=== PATIENT | male | born 1970 | race Two or more races ===

== ENCOUNTER 2024-09-24 17:19 | Inpatient (IN) | payer BC, OTHER ==
[~2024-09-24] VITALS: Ht 185.4 cm; Wt 145.8 kg
--- NOTE | 2024-09-24 17:46 | ED.PDOC ---
History of Present Illness HPI Comments 54-year-old male brought by paramedics from [facility] after cardiac arrest. Patient was sitting at a picnic table when he dropped to the ground. CPR performed by family member. When paramedics arrived he was in ventricular fibrillation for which he was shocked continuous CPR for few minutes along with one epi. Patient came back to sinus rhythm. He was answering questions prior to coming to the ER. Patient vitals signs along with mental state back to baseline as per family. 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 Denies any other medical surgical history. Chief Complaint: CPR Time Seen by MD: 17:32 Primary Care Provider: " I DON'T KNOW THE NAME" Reviewed Notes: Nurses Notes, Medications, Allergies Allergies: Coded Allergies: NO KNOWN ALLERGIES (Unverified , 09/24/24) Information Source: Emergency Med Personnel Mode of Arrival: EMS Severity: Moderate Timing: Minutes Duration: Since onset Past Medical History PAST MEDICAL HISTORY: Denies Surgical History: Denies all surgeries Social History Smoker: Non-Smoker Alcohol: Denies ETOH Use Drugs: Denies Drug Use Constitutional: denies: chills, diaphoresis, fatigue, fever, malaise, sweats, weakness, others EENTM: denies: blurred vision, double vision, ear bleeding, ear discharge, ear drainage, ear pain, ear ringing, eye pain, eye redness, hearing loss, mouth pain, mouth swelling, nasal discharge, nose bleeding, nose congestion, nose pain, photophobia, tearing, throat pain, throat swelling, voice changes, others Respiratory: denies: cough, hemoptysis, orthopnea, SOB at rest, shortness of breath, SOB with excertion, stridor, wheezing, others Cardiovascular: reports: chest pain; denies: dizzy spells, diaphoresis, Dyspnea on exertion, edema, irregular heart beat, left arm pain, lightheadedness, palpitations, PND, syncope, others Gastrointestinal: denies: abdomen distended, abdominal pain, blood streaked bowels, constipated, diarrhea, dysphagia, difficulty swallowing, hematemesis, melena, nausea, poor appetite, poor fluid intake, rectal bleeding, rectal pain, vomiting, others Genitourinary: denies: burning, dysuria, flank pain, frequency, hematuria, incontinence, penile discharge, penile sore, pain, testicle pain, testicle swelling, urgency, others Neurological: denies: dizziness, fainting, headache, left sided numbness, left sided weakness, numbness, paresthesia, pre-existing deficit, right sided numbness, right sided weakness, seizure, speech problems, tingling, tremors, weakness, others Musculoskeletal: denies: back pain, gout, joint pain, joint swelling, muscle pain, muscle stiffness, neck pain, others Integumetry: denies: bruises, change in color, change in hair/nails, dryness, laceration, lesions, lumps, rash, wounds, others Allergic/Immunocompromised: denies: Difficulty Healing, Frequent Infections, Hives, Itching, others Hematologic/Lymphatic: denies: anemia, blood clots, easy bleeding, easy bruising, swollen glands, others Endocrine: denies: excessive hunger, excessive sweating, excessive thirst, excessive urination, flushing, intolerance to cold, intolerance to heat, unexplained weight gain, unexplained weight loss, others Psychiatric: denies: anxiety, bipolar disorder, depression, hopeless, panic disorder, schizophrenia, sleepless, suicidal, others Physical Exam General Appearance: Moderate Distress, Obese HEENT: Normal ENT Inspection, Pharynx Normal, TMs Normal Neck: Full Range of Motion, Non-Tender, Normal, Normal Inspection Respiratory: Chest Non-Tender, Lungs Clear, No Accessory Muscle Use, No Respiratory Distress, Normal Breath Sounds Cardiovascular: No Edema, No JVD, No Murmur, No Gallop, Normal Peripheral Pulses, Regular Rate/Rhythm Breast Exam: Deferred Gastrointestinal: No Organomegaly, Non Tender, No Pulsatile Mass, Normal Bowel Sounds, Soft Genitalia: Deferred Pelvic: Deferred Rectal: Deferred Extremities: Swelling (Bilateral lower extremity) Musculoskeletal : Apperance: Normal Neurologic: Alert Cerebellar Function: NOT DONE Reflexes: NOT DONE Skin: Dry, Normal Color, Warm Peripheral Pulses: 3+ Radial (R), 3+ Radial (L) Lymphatic: No Adenopathy Was a procedure done? Was a procedure done?: No Differential Dx Considerations may include: Cardiac arrest Electrolyte imbalance X-Ray, Labs, Meds, VS Vital Signs Date Time Temp Pulse Resp B/P (MAP) Pulse Ox O2 Delivery O2 Flow Rate FiO2 09/24/24 20:16 77 09/24/24 20:00 77 09/24/24 19:30 Nasal Cannula* 2 28 09/24/24 19:30 79 14 128/78 (95) 99 09/24/24 18:35 78 09/24/24 18:17 83 12 99 Nasal Cannula* 2 28 09/24/24 17:41 80 09/24/24 17:20 97.6 83 12 123/85 (98) 99 97.6 09/24/24 17:19 98.6 86 16 134/72 (92) 98 Lab Test 09/24/24 21:12 09/24/24 18:53 09/24/24 18:05 Range/Units Lactic Acid Level Pending Troponin I High Sensitivity Pending 442 *H 327 *H </=54 ng/L White Blood Count 9.0 4.4-10.8 10^3/uL Red Blood Count 5.33 4.5-5.90 10^6/uL Hemoglobin 15.0 13.5-17.5 g/dL Hematocrit 45.5 41.0-53.0 % Mean Corpuscular Volume 85.3 80.0-100.0 fL Mean Corpuscular Hemoglobin 28.2 28.0-32.0 pg Mean Corpuscular Hemoglobin Concent 33.0 32.0-36.0 g/dL Red Cell Distribution Width 15.2 H 11.8-14.3 % Platelet Count 181 140-450 10^3/uL Mean Platelet Volume 8.8 6.9-10.8 fL Neutrophils (%) (Auto) 77.2 37.0-80.0 % Lymphocytes (%) (Auto) 16.4 10.0-50.0 % Monocytes (%) (Auto) 5.8 0.0-12.0 % Eosinophils (%) (Auto) 0.3 0.0-7.0 % Basophils (%) (Auto) 0.3 0.0-2.0 % Neutrophils # (Auto) 7.0 1.6-8.6 10 ^3/uL Lymphocytes # (Auto) 1.5 0.4-5.4 10 ^3/uL Monocytes # (Auto) 0.5 0-1.3 10 ^3/uL Eosinophils # (Auto) 0 0-0.8 10 ^3/uL Basophils # (Auto) 0 0-0.2 10 ^3/uL Nucleated Red Blood Cells 0.2 % Sodium Level 143 136-145 mmol/L Potassium Level 3.5 3.5-5.1 mmol/L Chloride Level 107 98-107 mmol/L Carbon Dioxide Level 24 20-31 mmol/L Anion Gap 12 5-15 Blood Urea Nitrogen 22 9-23 mg/dL Creatinine 1.20 0.700-1.30 mg/dL Glomerular Filtration Rate Calc 71 >90 mL/min BUN/Creatinine Ratio 18.3 10.0-20.0 Serum Glucose 153 H 74-106 mg/dL Hemoglobin A1c 5.7 <5.7 % A1C Calcium Level 9.0 8.7-10.4 mg/dL B-Type Natriuretic Peptide 42.46 0-100 pg/mL Current Medications Medications (Trade) Dose Ordered Sig/Lindsay Route Start Time Stop Time Status Last Admin Enoxaparin Sodium (Lovenox) 130 mg ONCE ONCE SC 09/24/24 19:00 09/24/24 19:01 DC 09/24/24 19:43 Patient alert. Had cardiac arrest prior to coming here. Rosc. Vitals stable. Answering questions. Cardiac marker elevated. CPR was performed prior to coming to the ER. He was in VFib. Shocked. Sinus rhythm on arrival. Was given Lovenox. Blood sugar slightly elevated. Denies any past medical history. Unknown why he passed out. DVT study within normal limits. CT of the chest. Patient denies chest pain. He is doing much better. Has been stable. EKG reviewed does not show any acute changes. Cardiology consultation. Explained to the family. Continue cardiac monitoring. Time of 1ST Reevaluation: 21:31 Reevaluation 1ST: Unchanged Patient Education/Counseling: Diagnosis, Treatment, Prognosis Family Education/Counseling: Need For Follow Up Departure 1 Departure Time of Disposition: 21:34 Impression: Primary Impression: Cardiac arrest Additional Impression: NSTEMI (non-ST elevated myocardial infarction) Disposition: ADMITTED INPATIENT Admit to: Med Surg Condition: Guarded Critical Care Note Critical Care Time?: Yes (45 min-critical care time only) Stability Stability form required: No Heart Score Heart Score: Heart Score Response (Comments) Value History Slightly Suspicious 0 EKG Normal 0 Age 45-64 1 Risk Factors 1 or 2 risk factors 1 Troponin >3 x's Normal limit 2 Total 4 AMERICO ECHAVARRIA MD Sep 24, 2024 17:46
[2024-09-24 18:17] VITALS: PULSE 83; RESP 12; O2SAT 99
[2024-09-24 18:26] LABS: Basophils # (auto) 0 10 ^3/uL (0-0.2); Basophils % (auto) 0.3 % (0.0-2.0); Eosinophils # (auto) 0 10 ^3/uL (0-0.8); Eosinophils % (auto) 0.3 % (0.0-7.0); Hematocrit 45.5 % (41.0-53.0); Lymphocytes # (auto) 1.5 10 ^3/uL (0.4-5.4); Lymphocytes % (auto) 16.4 % (10.0-50.0); Mean Corpuscular Hemoglobin 28.2 pg (28.0-32.0); Mean Corpuscular Volume 85.3 fL (80.0-100.0); Monocytes # (auto) 0.5 10 ^3/uL (0-1.3); Monocytes % (auto) 5.8 % (0.0-12.0); Neutrophils % (auto) 77.2 % (37.0-80.0); Nucleated Red Blood Cells % 0.2 %; Platelet Count (auto) 181 10^3/uL (140-450); Red Blood Cells 5.33 10^6/uL (4.5-5.90); Red Cell Distribution Width 15.2 % (11.8-14.3)
[2024-09-24 18:33] LABS: Chloride 107 mmol/L (98-107); Potassium 3.5 mmol/L (3.5-5.1); Sodium 143 mmol/L (136-145)
[2024-09-24 18:34] LABS: Anion Gap 12 (5-15); Carbon Dioxide 24 mmol/L (20-31)
--- NOTE | 2024-09-24 18:38 | DVH ---
Bilateral lower extremity venous duplex Clinical History: dvt Comparison: None Technique: Duplex Doppler evaluation of the deep venous systems of both lower extremities from the common femora l veins to the popliteal veins including color Doppler and spectral/pulsed waveform analysis was perf ormed. Findings: RIGHT SIDE: The common femoral vein demonstrates appropriate compressibility and waveform variability. There is compressibility/patency of the great saphenous vein at the proximal thigh. The femoral vein demonstrates appropriate compressibility and waveform variability. The deep femoral vein demonstrates appropriate compressibility and waveform variability. The popliteal vein demonstrates appropriate compressibility and waveform variability. There is normal compressibility at the tibioperoneal trunk. LEFT SIDE: The common femoral vein demonstrates appropriate compressibility and waveform variability. There is compressibility/patency of the great saphenous vein at the proximal thigh. The femoral vein demonstrates appropriate compressibility and waveform variability. The deep femoral vein demonstrates appropriate compressibility and waveform variability. The popliteal vein demonstrates appropriate compressibility and waveform variability. There is normal compressibility at the tibioperoneal trunk. Impression: 1. No right or left femoropopliteal venous thrombosis.
[2024-09-24 18:39] LABS: BUN/Creatinine Ratio 18.3 (10.0-20.0); Blood Urea Nitrogen 22 mg/dL (9-23); Glucose 153 mg/dL (74-106)
--- NOTE | 2024-09-24 18:54 | ECG ---
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
--- NOTE | 2024-09-24 18:55 | ECG ---
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
[2024-09-24] MEDS: ENOXAPARIN SOD 150 MG/1 ML SYRINGE SC ONE (19:43)
[2024-09-24] MEDS: IOHEXOL 350 MG/ML 100ML IJ ONE (20:59)
[2024-09-24] MEDS ORDERED: DOCUSATE SOD 100 MG CAP PO PRN (21:00)
[2024-09-24] MEDS ORDERED: ONDANSETRON HCL 4 MG/2 ML VIAL IV PRN (21:00)
--- NOTE | 2024-09-24 21:23 | DVH ---
EXAM: CT HEAD WITHOUT CONTRAST INDICATION: altered TECHNIQUE: CT of the head without intravenous contrast. Radiation Dose Information: CT Dose: CTDI volume is 68.27 mGy. Dose-length product is 1344.95 mGy*cm The dose indicators for CT are the volume Computed Tomography (CT) Dose Index (CTDIvol) and the Dose Length Product (DLP), and are measured in units of mGy and mGy-cm, respectively. These indicators are not patient dose, but values generated from the CT scanner acquisition factors. The report includes radiation exposure data for exposures received during this examination. COMPARISON: None FINDINGS: There is no evidence of acute intracranial hemorrhage, extra-axial collection, mass effect, midline s hift, herniation or hydrocephalus. The ventricles, sulci and cisterns are age appropriate. The champagne-white differentiation is intact. Patchy periventricular and subcortical white matter hypoattenuation is nonspecific but may be related to small vessel ischemic disease. The visualized paranasal sinuses and mastoid air cells are clear. The surrounding soft tissues and osseous structures are unremarkable. IMPRESSION: * No acute intracranial hemorrhage. * No CT findings to suggest territorial ischemia.
[2024-09-24] MEDS: ENOXAPARIN SOD 150 MG/1 ML SYRINGE SC SCH (22:00)
[2024-09-24] MEDS: SODIUM CHLOR 0.9% PF (SALINE LOCK) 10ML VIAL/SYR IV SCH (22:02)
--- NOTE | 2024-09-24 22:02 | DVH ---
Exam: CT CT CHEST/AB/PL W CON- IV ONLY History: PE Comparison Study: None available at time of dictation. TECHNIQUE: Multidetector CT of the abdomen was performed from lung bases to pubic symphysis. Imaging was performed without IV contrast. Axial, coronal and sagittal multiplanar reformats were obtained fr om the axial data set by the technologist. Radiation Dose Information: CT Dose: CTDI volume is 71.46 mGy. Dose-length product is 3602.97 mGy*cm Omnipaque 350: 100 mL FINDINGS: Suboptimal opacification of pulmonary artery to exclude pulmonary emboli. ( opacification required 26 6 HU ; opacification obtained 155 HU ) Lung Bases: No filling defects in the main or right or left primary pulmonary arteries. Pulmonary art anuel is not enlarged to suggest pulmonary artery hypertension. There are no findings to suggest right heart stress. Liver: The liver is normal in size. No focal lesions. Gallbladder and Biliary Tree: Unremarkable Spleen: Unremarkable Pancreas: The pancreas is grossly normal in appearance. Adrenal Glands: Unremarkable Kidneys: Kidneys are grossly normal without calculi or hydronephrosis. Bladder: Grossly unremarkable for degree of distention. Bowel: The stomach is grossly normal in appearance. Small bowel and colon are normal in caliber and d istribution. The appendix is not visualized; however, no secondary findings of acute appendicitis id entified. Ascites: Absent Lymphadenopathy: No mesenteric, retroperitoneal or periportal lymphadenopathy. Abdominal Wall and Mesentery: Unremarkable. Vasculature: The visualized abdominal aorta is normal in size and caliber. Evaluation of abdominal a nd pelvic vessels is limited due to lack of intravenous contrast. Pelvic Organs: Unremarkable Musculoskeletal: No aggressive focal bony lesions, acute fractures or dislocation. Soft tissues: Unremarkable IMPRESSION: 1. Suboptimal opacification of the pulmonary artery for the diagnosis of pulmonary embolus. There are however no filling defects seen in the main pulmonary artery or main right or left pulmonary arterie s. There is no saddle embolus present. 2. No findings of bowel obstruction. 3. No calcified gallstones. Radiation optimization: All CT scans at this facility use at least one of these dose optimization jason hniques: automated exposure control mA and/or kV adjustment per patient size (includes targeted exam s where dose is matched to clinical indication) or iterative reconstruction.
--- NOTE | 2024-09-24 23:21 | DVHHP2 ---
History of Present Illness Reason for Visit: NSTEMI (non-ST elevated myocardial infarction) History of Present Illness The patient is a 54-year-old male morbidly obese with past medical history of Dnrrp-Wzsazrhbi-Kmqrl syndrome presented to [facility] ED for evaluation of cardiac arrest at home. Patient was sitting at a picnic table when he dropped to the ground. CPR performed by family member until paramedics arrived. When paramedics arrived on the scene, he was in ventricular fibrillation for which he was shocked and continuous CPR for few minutes along with one epi. Patient came back to sinus rhythm and was answering questions prior to coming to the ED. patient was seen and evaluated in the ED, laboratory data shows WBC 9.0, platelets 181, sodium 143, potassium 3.5, BUN 22, creatinine 1.20, glucose 153, troponin 442, BNP 42.45, blood pressure 128/78, heart rate 77, temperature 97.6 F, O2 saturation 99% on oxygen. CT of the head/abdomen/pel vis revealing suboptimal opacification of the pulmonary artery for the diagnosis of pulmonary embolus; the however no filling defect seen in the main pulmonary artery and main right or left pulmonary arteries; there is no saddled embolus present. Please see medication orders section in the computer. On my assessment, at bedside, patient denied chest pain, no headache, no dizziness, no diaphoresis, no palpitations, currently on oxygen, no nausea, no vomiting, no fever, no chills. Patient was admitted for further evaluation and medical management. Past Medical History Xfguy-Dohfvxkse-Znpdi syndrome Past Surgical History Denies all surgeries Family History Reviewed, noncontributory to the management of this case. Past Social History The patient lives at home, denies smoking, alcohol or illicit drugs abuse. Review of Systems Constitutional: Yes: Weakness; No: Fever, Chills, Sweats, Malaise, Other Eyes: No: Pain, Vision change, Conjunctivae inflammation, Eyelid inflammation, Other, Redness ENT: No: Ear pain, Ear discharge, Nose pain, Nose discharge, Nose congestion, Mouth pain, Mouth swelling, Throat pain, Throat swelling, Other Respiratory: Shortness of breath; No: Cough, Dry, SOB with excertion, Wheezing, Hemoptysis, Pleuritic Pain, Sputum, Wheezing, Other Cardiovascular: Chest Pain; No: Palpitations, Orthopnea, Paroxysmal Noc. Dyspnea, Edema, Lt Headedness, Other Gastrointestinal: No: Nausea, Vomiting, Abdominal Pain, Diarrhea, Constipation, Melena, Hematochezia, Other Genitourinary: No Dysuria, No Frequency, No Incontinence, No Hematuria, No Retention, No Other Musculoskeletal: No: other, neck pain, shoulder pain, arm pain, back pain, hand pain, leg pain, foot pain Skin: No: Rash, Lesions, Jaundice, Bruising, Other Neurological: No: Weakness, Numbness, Incoordination, Change in speech, Confusion, Seizures, Other Allergies: Coded Allergies: NO KNOWN ALLERGIES (Unverified , 09/24/24) Medications Current Medications Medications Dose Ordered Sig/Lindsay Route Start Time Stop Time Status Last Admin Dose Admin Enoxaparin Sodium 130 mg Q12HR SC 09/24/24 22:00 Sodium Chloride 10 ml Q8HR IV 09/24/24 22:00 09/24/24 22:02 10 ML Ondansetron HCl 4 mg Q4HP PRN IV 09/24/24 21:00 Acetaminophen/ Hydrocodone Bitart 1 tab Q4HP PRN PO 09/24/24 21:00 Docusate Sodium 100 mg BIDPRN PRN PO 09/24/24 21:00 Acetaminophen 650 mg Q6HP PRN PO 09/24/24 21:00 Exam Vital Signs Vital Signs Date Time Temp Pulse Resp B/P (MAP) Pulse Ox O2 Delivery O2 Flow Rate FiO2 09/24/24 21:30 84 23 147/90 (109) 97 09/24/24 19:30 Nasal Cannula* 2 28 09/24/24 17:20 97.6 97.6 General Appearance: Alert, Oriented X3, Cooperative, No acute distress HEENT: Atraumatic, PERRLA, EOMI, Mucous membr. moist/pink Respiratory: Clear to auscultation, Normal air movement Cardiovascular: Regular rate, Normal S1, Normal S2, No murmurs Abdominal: Normal bowel sounds, Soft, No tenderness, No hepatospenomegaly, No masses Extremities: No clubbing, No cyanosis, No edema, Normal pulses, No tenderness/swelling Skin: No rashes, No breakdown, No significant lesion Neuro: Normal speech, Normal tone, Sensation intact, Cranial nerves 3-12 NL, Reflexes 2+, Other (Generalized weakness) Psych/Mental Status: Mental status NL, Mood NL Labs/Xrays Labs Test 09/24/24 21:12 09/24/24 18:05 Range/Units D-Dimer, Quantitative 7.25 H 0.0-0.49 mg/L FEU Lactic Acid Level 1.5 0.4-2.0 mmol/L Troponin I High Sensitivity 646 *H </=54 ng/L White Blood Count 9.0 4.4-10.8 10^3/uL Red Blood Count 5.33 4.5-5.90 10^6/uL Hemoglobin 15.0 13.5-17.5 g/dL Hematocrit 45.5 41.0-53.0 % Mean Corpuscular Volume 85.3 80.0-100.0 fL Mean Corpuscular Hemoglobin 28.2 28.0-32.0 pg Mean Corpuscular Hemoglobin Concent 33.0 32.0-36.0 g/dL Red Cell Distribution Width 15.2 H 11.8-14.3 % Platelet Count 181 140-450 10^3/uL Mean Platelet Volume 8.8 6.9-10.8 fL Neutrophils (%) (Auto) 77.2 37.0-80.0 % Lymphocytes (%) (Auto) 16.4 10.0-50.0 % Monocytes (%) (Auto) 5.8 0.0-12.0 % Eosinophils (%) (Auto) 0.3 0.0-7.0 % Basophils (%) (Auto) 0.3 0.0-2.0 % Neutrophils # (Auto) 7.0 1.6-8.6 10 ^3/uL Lymphocytes # (Auto) 1.5 0.4-5.4 10 ^3/uL Monocytes # (Auto) 0.5 0-1.3 10 ^3/uL Eosinophils # (Auto) 0 0-0.8 10 ^3/uL Basophils # (Auto) 0 0-0.2 10 ^3/uL Nucleated Red Blood Cells 0.2 % Sodium Level 143 136-145 mmol/L Potassium Level 3.5 3.5-5.1 mmol/L Chloride Level 107 98-107 mmol/L Carbon Dioxide Level 24 20-31 mmol/L Anion Gap 12 5-15 Blood Urea Nitrogen 22 9-23 mg/dL Creatinine 1.20 0.700-1.30 mg/dL Glomerular Filtration Rate Calc 71 >90 mL/min BUN/Creatinine Ratio 18.3 10.0-20.0 Serum Glucose 153 H 74-106 mg/dL Hemoglobin A1c 5.7 <5.7 % A1C Calcium Level 9.0 8.7-10.4 mg/dL B-Type Natriuretic Peptide 42.46 0-100 pg/mL PATIENT: REJI GIBSONACCT: [id number] UNIT: [id number] : 1970 LOC: ER ROOM / BED: / AGE / SEX: 54 / M ADM STATUS: REG ER SERVICE 40 ORDERING PHYSICIAN: AMERICO ECHAVARRIA MD PROCEDURE(s): CAPIV - CT CHEST/AB/PL W CON- IV ONLY REASON: pe ORDER NUMBER(s): [id number], ACCESSION NUMBER(s): [id number] Exam: CT CT CHEST/AB/PL W CON- IV ONLY History: PE Comparison Study: None available at time of dictation. TECHNIQUE: Multidetector CT of the abdomen was performed from lung bases to pubic symphysis. Imaging was performed without IV contrast. Axial, coronal and sagittal multiplanar reformats were obtained from the axial data set by the technologist. Radiation Dose Information: CT Dose: CTDI volume is 71.46 mGy. Dose-length product is 3602.97 mGy*cm Omnipaque 350: 100 mL FINDINGS: Suboptimal opacification of pulmonary artery to exclude pulmonary emboli. (opacification required 266 HU ; opacification obtained 155 HU ) Lung Bases: No filling defects in the main or right or left primary pulmonary arteries. Pulmonary artery is not enlarged to suggest pulmonary artery hypertension. There are no findings to suggest right heart stress. Liver: The liver is normal in size. No focal lesions. Gallbladder and Biliary Tree: Unremarkable Spleen: Unremarkable Pancreas: The pancreas is grossly normal in appearance. Adrenal Glands: Unremarkable Kidneys: Kidneys are grossly normal without calculi or hydronephrosis. Bladder: Grossly unremarkable for degree of distention. Bowel: The stomach is grossly normal in appearance. Small bowel and colon are normal in caliber and distribution. The appendix is not visualized; however, no secondary findings of acute appendicitis identified. Ascites: Absent Lymphadenopathy: No mesenteric, retroperitoneal or periportal lymphadenopathy. Abdominal Wall and Mesentery: Unremarkable. Vasculature: The visualized abdominal aorta is normal in size and caliber. Evaluation of abdominal and pelvic vessels is limited due to lack of intravenous contrast. Pelvic Organs: Unremarkable Musculoskeletal: No aggressive focal bony lesions, acute fractures or dislocation. Soft tissues: Unremarkable IMPRESSION: 1. Suboptimal opacification of the pulmonary artery for the diagnosis of pulmonary embolus. There are however no filling defects seen in the main pulmonary artery or main right or left pulmonary arteries. There is no saddle embolus present. 2. No findings of bowel obstruction. 3. No calcified gallstones. ORDERING PHYSICIAN: AMERICO ECHAVARRIA MD PROCEDURE(s): HWOCT - HEAD WITHOUT CONTRAST REASON: altered ORDER NUMBER(s): [id number], ACCESSION NUMBER(s): [id number] EXAM: CT HEAD WITHOUT CONTRAST INDICATION: altered TECHNIQUE: CT of the head without intravenous contrast. Radiation Dose Information: CT Dose: CTDI volume is 68.27 mGy. Dose-length product is 1344.95 mGy*cm The dose indicators for CT are the volume Computed Tomography (CT) Dose Index (CTDIvol) and the Dose Length Product (DLP), and are measured in units of mGy and mGy-cm, respectively. These indicators are not patient dose, but values generated from the CT scanner acquisition factors. The report includes radiation exposure data for exposures received during this examination. COMPARISON: None FINDINGS: There is no evidence of acute intracranial hemorrhage, extra-axial collection, mass effect, midline shift, herniation or hydrocephalus. The ventricles, sulci and cisterns are age appropriate. The champagne-white differentiation is intact. Patchy periventricular and subcortical white matter hypoattenuation is nonspecific but may be related to small vessel ischemic disease. The visualized paranasal sinuses and mastoid air cells are clear. The surrounding soft tissues and osseous structures are unremarkable. IMPRESSION: * No acute intracranial hemorrhage. * No CT findings to suggest territorial ischemia. ORDERING PHYSICIAN: AMERICO ECHAVARRIA MD PROCEDURE(s): BLDVT - BiLat Lower DVT REASON: dvt ORDER NUMBER(s): [id number], ACCESSION NUMBER(s): [id number] Bilateral lower extremity venous duplex Clinical History: dvt Comparison: None Technique: Duplex Doppler evaluation of the deep venous systems of both lower extremities from the common femoral veins to the popliteal veins including color Doppler and spectral/pulsed waveform analysis was performed. Findings: RIGHT SIDE: The common femoral vein demonstrates appropriate compressibility and waveform variability. There is compressibility/patency of the great saphenous vein at the proximal thigh. The femoral vein demonstrates appropriate compressibility and waveform variability. The deep femoral vein demonstrates appropriate compressibility and waveform variability. The popliteal vein demonstrates appropriate compressibility and waveform variability. There is normal compressibility at the tibioperoneal trunk. LEFT SIDE: The common femoral vein demonstrates appropriate compressibility and waveform variability. There is compressibility/patency of the great saphenous vein at the proximal thigh. The femoral vein demonstrates appropriate compressibility and waveform variability. The deep femoral vein demonstrates appropriate compressibility and waveform variability. The popliteal vein demonstrates appropriate compressibility and waveform variability. There is normal compressibility at the tibioperoneal trunk. Impression: 1. No right or left femoropopliteal venous thrombosis. Assessment/Plan Assessment/Plan Cardiac arrest Generalized weakness Hyperglycemia NSTEMI (non-ST elevated myocardial infarction) Plan 1. Admit to telemetry unit 2. Breathing treatment 3. Pain control management 4. Management of fluids and electrolytes 5. Consultation for Cardiology 6. Diagnostic tests chest/abdomen/pelvis CT 7. DVT prophylaxis-on Lovenox 8. Repeat labs CBC, CMP in a.m. 9. Continue with current medical management 10. Treatment plan discussed with patient and RN. Patient verbalized understanding. Plan discussed with: Patient, Other (RN) My Orders Orders - DEBORAH CABRAL DNP Procedure Category Date Status Time Enoxaparin Sodium PHA 09/24/24 In Process (Lovenox) 22:00 * Cardiology Consult CONS 09/24/24 Transmitted 20:48 Allergies DAVIN 09/24/24 In Process 20:48 Code Status CODE 09/24/24 Transmitted 20:48 Sodium Chloride Lock PHA 09/24/24 In Process (Saline Lock Ns) 22:00 Oxygen Per Hour RT 09/24/24 Transmitted 20:48 Ondansetron Hcl PHA 09/24/24 In Process (Zofran) 21:00 Fall Risk Precautions DAVIN 09/24/[address] 20:48 Complete Blood Count LAB 09/25/24 Verified 04:00 Comprehensive LAB 09/25/24 Verified Metabolic Panel 04:00 Echo 2d Mode Cardiac US 09/24/24 Logged DOP 20:48 Condition: Serious DAVIN 09/24/24 In Process 20:48 Troponin-I Hs LAB 09/25/24 Verified 00:00 Troponin-I Hs LAB 09/25/24 Verified 06:00 Troponin-I Hs LAB 09/25/24 Verified 12:00 Hydrocodone-Acet PHA 09/24/24 In Process 5/325mg Tab ([place] 21:00 Docusate Sodium PHA 09/24/24 In Process Capsule (Colace 21:00 Cardiac DIET 09/25/24 Transmitted Diet-2gna,Lofat,Lochol Breakfast Acetaminophen Tablet PHA 09/24/24 In Process (Tylenol Tablet) 21:00 Problem List: (1) Cardiac arrest (2) Hyperglycemia (3) Generalized weakness (4) NSTEMI (non-ST elevated myocardial infarction) Date of Service: Sep 24, 2024 Billing Provider: DEBORAH CABRAL DNP Common Visit Codes: [id number] INP/OBS CARE (HIGH) DEBORAH CABRAL DNP Sep 24, 2024 23:21
[2024-09-24] MEDS ORDERED: NITROGLYCERIN 0.4 MG SL TAB SL PRN (23:30)
[2024-09-24] MEDS ORDERED: MORPHINE SULFATE INJ 2 MG/ml SYRG IV PRN (23:30)
[2024-09-25 03:58] LABS: Basophils # (auto) 0 10 ^3/uL (0-0.2); Basophils % (auto) 0.1 % (0.0-2.0); Eosinophils # (auto) 0 10 ^3/uL (0-0.8); Eosinophils % (auto) 0.1 % (0.0-7.0); Hematocrit 41.1 % (41.0-53.0); Hemoglobin 13.6 g/dL (13.5-17.5); Lymphocytes # (auto) 1.5 10 ^3/uL (0.4-5.4); Lymphocytes % (auto) 17.7 % (10.0-50.0); Mean Corpuscular Hemoglobin 28.1 pg (28.0-32.0); Monocytes # (auto) 0.6 10 ^3/uL (0-1.3); Neutrophils # (auto) 6.5 10 ^3/uL (1.6-8.6); Neutrophils % (auto) 75.1 % (37.0-80.0); Platelet Count (auto) 192 10^3/uL (140-450); Red Blood Cells 4.84 10^6/uL (4.5-5.90); Red Cell Distribution Width 15.1 % (11.8-14.3); White Blood Cell 8.7 10^3/uL (4.4-10.8)
[2024-09-25 04:20] LABS: Alanine Aminotransferase 302 U/L (7-40); Alkaline Phosphatase 67 U/L (46-116); Anion Gap 8 (5-15); Aspartate Aminotransferase 206 U/L (13-40); BUN/Creatinine Ratio 15.2 (10.0-20.0); Bilirubin, Total 0.5 mg/dL (0.2-1.0); Blood Urea Nitrogen 15 mg/dL (9-23); Calcium 8.3 mg/dL (8.7-10.4); Carbon Dioxide 23 mmol/L (20-31); Chloride 109 mmol/L (98-107); Glucose 153 mg/dL (74-106); Potassium 3.4 mmol/L (3.5-5.1); Sodium 140 mmol/L (136-145)
[2024-09-25] MEDS: ACETAMINOPHEN 325 MG TAB PO PRN (07:23)
[2024-09-25 08:30] VITALS: PULSE 74; RESP 13; O2SAT 98
--- NOTE | 2024-09-25 09:11 | DVHINCON2 ---
Date Seen: Sep 25, 2024 Referring Physician Aleena Reason for Consultation Post Cardiac Arrest History of Present Illness 54-year-old male with PMH for Rbvjm-Uppbuvvfi-Keobj syndrome, presents to the hospital s/p cardiac arrest. Patient and are from [place] and was visiting up at [place] for patient states he had 1 beer and had gotten up to go use the restroom when patient suddenly became unresponsive and was helped by local firefighters noting patient was agonal breathing and therefore CPR was initiated. Patient underwent 2 rounds of CPR with 1 shock delivered for ventricular fibrillation, possible 1 round of epi per . Rosc was achieved and patient was becoming more responsive and answering questions. Patient was planned to be transported via air to [facility] or [place] though due to weather was unable to fly therefore patient was then transported here to ER. Of note patient has been walking daily with and had just done a hike earlier that day, apple watch results noted heart rate reached roughly 130 beats per minute during exertion with rest of day showing mean heart rate between 60-70 beats per minute on mobile device heart rate monitoring system. Patient denies any remembered palpitations, lightheadedness, chest pains prior to passing out. Upon evaluation patient vital signs were stable, patient is breathing stable on 2 L NC. Patient does complain of chest pain, anterior thoracic area, s/p compressions, increases with deep breathing. Patient also noted have elevated troponin trending 327, 442, 646, 688, 489. LFTs elevated with AST 206 and ALT 302. EKG reviewed and shows sinus rhythm at 78 beats per minute, no significant ST abnormality noted, no delta wave noted. QTC prolongation at 511 ms. Past Medical History Khhiq-Zweexkrid-Zcbop syndrome Past Surgical History Denies previous cardiac surgery Family History Father and uncle at early age due to cardiac disease with cardiomyopathy and MS roughly around age 53 Social History Denies tobacco, or illicit drug use. Occasional alcohol consumption socially. 1-2 drinks Allergies: Coded Allergies: NO KNOWN ALLERGIES (Unverified , 09/24/24) Home Meds Reported Medications Aspirin (Aspir-81) 81 Mg Tab, 1 TAB PO DAILY, #30 TAB 5 Refills 09/25/24 Current Medications Current Medications Medications (Trade) Dose Ordered Sig/Lindsay Route PRN Reason Start Time Stop Time Status Last Admin Enoxaparin Sodium (Lovenox) 130 mg Q12HR SC 09/24/24 22:00 Sodium Chloride (Saline Lock Ns) 10 ml Q8HR IV 09/24/24 22:00 09/25/24 06:00 Ondansetron HCl (Zofran) 4 mg Q4HP PRN IV NAUSEA / VOMITING 09/24/24 21:00 Acetaminophen/ Hydrocodone Bitart ([place] 5/325MG Tab) 1 tab Q4HP PRN PO MODERATE PAIN (4-6 PAIN SCALE) 09/24/24 21:00 Docusate Sodium (Colace Capsule) 100 mg BIDPRN PRN PO FOR CONSTIPATION 09/24/24 21:00 Acetaminophen (Tylenol Tablet) 650 mg Q6HP PRN PO PAIN SCALE 1-3 OR TEMP>100.4 09/24/24 21:00 09/25/24 07:23 Nitroglycerin (Ntrostat Sublingual) 0.4 mg Q5MINP PRN SL FOR CHEST PAIN 09/24/24 23:30 Morphine Sulfate 2 mg Q30M PRN IV FOR CHEST PAIN 09/24/24 23:30 Review of Systems Constitutional: No: Fever, Chills, Sweats, Weakness, Malaise, Other Eyes: No: Pain, Vision change, Conjunctivae inflammation, Eyelid inflammation, Other, Redness ENT: No: Ear pain, Ear discharge, Nose pain, Nose discharge, Nose congestion, Mouth pain, Mouth swelling, Throat pain, Throat swelling, Other Respiratory: No: Cough, Dry, Shortness of breath, SOB with exertion, Wheezing, Hemoptysis, Pleuritic Pain, Sputum, Wheezing, Other Cardiovascular: ; No: Palpitations, Orthopnea, Paroxysmal Noc. Dyspnea, Edema, Lt Headedness, Other positive: Chest Pain Gastrointestinal: No: Nausea, Vomiting, Abdominal Pain, Diarrhea, Constipation, Melena, Hematochezia, Other Genitourinary: No Dysuria, No Frequency, No Incontinence, No Hematuria, No Rete ntion, No Other Musculoskeletal: neck pain; No: other, shoulder pain, arm pain, back pain, hand pain, leg pain, foot pain Skin: No: Rash, Lesions, Jaundice, Bruising, Other Neurological: Other (Dizziness, headache.); No: Weakness, Numbness, Incoordination, Change in speech, Confusion, Seizures positive: Repetitiveness forgetful Vital Signs Vital Signs Date Time Temp Pulse Resp B/P (MAP) Pulse Ox O2 Delivery O2 Flow Rate FiO2 09/25/24 08:30 74 13 98 Nasal Cannula* 2 28 09/25/24 07:35 139/87 (104) 09/24/24 17:20 97.6 97.6 Physical Exam General appearance: Patient is well-developed, well-nourished, in no acute distress. HEENT: Exam shows: Normocephalic, atraumatic, PERRLA, EOMI Neck: Supple, no bruits Chest: Equal chest excursion bilaterally. Breath sounds normal-no rales or wheezes. Heart: Rhythm: Regular rate; no murmur or gallop Abdomen: Exam shows: Soft, nontender, nondistended Musculoskeletal: No clubbing, no cyanosis, trace bilateral lower extremity edema Dermatology: Skin warm, moist. Neurological: Exam shows: Alert and oriented x4, normal speech Available prior records, labs, EKG, rhythm strips reviewed and interpreted Labs/Diagnostic Data Labs Test 09/25/24 03:30 09/24/24 21:12 09/24/24 18:05 Range/Units White Blood Count 8.7 4.4-10.8 10^3/uL Red Blood Count 4.84 4.5-5.90 10^6/uL Hemoglobin 13.6 13.5-17.5 g/dL Hematocrit 41.1 41.0-53.0 % Mean Corpuscular Volume 85.0 80.0-100.0 fL Mean Corpuscular Hemoglobin 28.1 28.0-32.0 pg Mean Corpuscular Hemoglobin Concent 33.0 32.0-36.0 g/dL Red Cell Distribution Width 15.1 H 11.8-14.3 % Platelet Count 192 140-450 10^3/uL Mean Platelet Volume 8.7 6.9-10.8 fL Neutrophils (%) (Auto) 75.1 37.0-80.0 % Lymphocytes (%) (Auto) 17.7 10.0-50.0 % Monocytes (%) (Auto) 7.0 0.0-12.0 % Eosinophils (%) (Auto) 0.1 0.0-7.0 % Basophils (%) (Auto) 0.1 0.0-2.0 % Neutrophils # (Auto) 6.5 1.6-8.6 10 ^3/uL Lymphocytes # (Auto) 1.5 0.4-5.4 10 ^3/uL Monocytes # (Auto) 0.6 0-1.3 10 ^3/uL Eosinophils # (Auto) 0 0-0.8 10 ^3/uL Basophils # (Auto) 0 0-0.2 10 ^3/uL Nucleated Red Blood Cells 0.0 % Sodium Level 140 136-145 mmol/L Potassium Level 3.4 L 3.5-5.1 mmol/L Chloride Level 109 H 98-107 mmol/L Carbon Dioxide Level 23 20-31 mmol/L Anion Gap 8 5-15 Blood Urea Nitrogen 15 9-23 mg/dL Creatinine 0.99 0.700-1.30 mg/dL Glomerular Filtration Rate Calc 89 >90 mL/min BUN/Creatinine Ratio 15.2 10.0-20.0 Serum Glucose 153 H 74-106 mg/dL Calcium Level 8.3 L 8.7-10.4 mg/dL Total Bilirubin 0.5 0.2-1.0 mg/dL Aspartate Amino Transferase (AST) 206 H 13-40 U/L Alanine Aminotransferase (ALT) 302 H 7-40 U/L Alkaline Phosphatase 67 46-116 U/L Troponin I High Sensitivity 489 *H </=54 ng/L Total Protein 6.0 5.7-8.2 g/dL Albumin 4.0 3.2-4.8 g/dL D-Dimer, Quantitative 7.25 H 0.0-0.49 mg/L FEU Lactic Acid Level 1.5 0.4-2.0 mmol/L Hemoglobin A1c 5.7 <5.7 % A1C B-Type Natriuretic Peptide 42.46 0-100 pg/mL Assessment (Dr. Luna) * S/p VFib cardiac arrest - status post 2 rounds of CPR with 1 epi and 1 shock with ROSC. Continue telemetry monitoring. Follow up echo shows mildly reduced LVEF 45-50% in a global fashion. Grade 1 LV DD. No valvular structural abnormalities. * NSTEMI - troponins stable. Chest pain musculoskeletal from CPR. Follow-up echo with mildly reduced EF. Continue on aspirin and statin. Full-dose Lovenox. Plan for ischemic workup with coronary angiogram in a.m.. Recommend cardiac catheterization +/- PCI. All risks, benefits, and alternatives of cardiac catheterization explained to the patient including the risk of stroke, MS, , coronary perforation, pericardial tamponade, contrast induced nephropathy, need for emergent CABG, mechanical support, mechanical ventilation, and bleeding from vascular complications from the procedure. Patient is agreeable to proceed with procedure. NPO after midnight. 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 Continue telemetry monitoring. Avoid AV bryan blockers, * Transaminitis - likely secondary to shock liver s/p cardiac arrest. Continue monitoring/trending * Hypokalemia - monitoring replace electrolytes. Case Discussed with Dr Luna. Continue telemetry monitoring. Plan ischemic workup with coronary angiogram in a.m., NPO after midnight. Thank you for allowing us to participate in this patient's care. Continue close monitoring. Critical care, time spent: 44 minutes This medical document was created using an electronic medical record system with voice recognition software and computerized dictation system. Although this document has been carefully reviewed, there might still be some phonetic and typographical errors. Occasional wrong-word or ``sound-alike substitutions may have occurred due to the inherent limitations of voice recognition software. These areas are purely typographical due to imperfections of the software programs and do not reflect any compromise in the patient's medical care. Please read the chart carefully and recognize, using context, where these substitutions have occurred. Portion of the chart may have been created with voice recognition software. Occasional wrong word or sound-alike substitutions may have occurred due to the inherent limitations of voice recognition software. Please read the chart carefully and recognize, using contacts, where the substitutions have occurred. The treatment plan was discussed with and agreed upon by patient/family including requesting consultants and ordering of imaging/procedures. Plan discussed with: Patient, Spouse Date of Service: Sep 25, 2024 Billing Provider: SONIDO LUNA MD Cardiology Common Codes: [id number] INP/OBS CARE (High), [id number] CARE 30-74 MIN CHARLES HERNANDEZ AGACNP Sep 25, 2024 09:11
[2024-09-25] MEDS: ASPirin 325 MG TAB PO ONE (11:05)
[2024-09-25] MEDS: POTASSIUM CHL 20 Meq TABLET PO ONE (11:05)
[2024-09-25 12:05] VITALS: BP 141/92; PULSE 74; RESP 16; O2SAT 96
[2024-09-25 13:00] VITALS: PULSE 76
--- NOTE | 2024-09-25 13:55 | DVHSR ---
APPROVED REPORT EXAM: LIMITED Two-dimensional and M-mode echocardiogram with Doppler and color Doppler. Blood Pressure: 139/87 mmHg INDICATION Cardiac Arrest RISK FACTORS Obesity: Height: 6' 1", Weight: 280 DIMENSIONS LVDd4.8 (3.8-5.7cm)LA (2D)3.7 (1.9-4.0cm)Aortic Root3.6 (2.0-3.7cm) LVDs3.5 (2.5-4.0cm)LA (MM) (1.9-4.0cm)Aortic Cusp Exc2.1 (1.5-2.0cm) EF (%) 50.0 (55-70%)Rt. Atrium4.2 (1.9-4.0cm)Asc. Aorta cm IVSd1.2 (0.7-1.1cm)RV (D) (1.8-2.4cm) PWd1.2 (0.7-1.1cm) Mitral Valve MitralMitral Stenosis E wave0.80m/sMV Mean GR.mmHg A wave0.70m/sMV Peak GR.mmHg E/A ratio1.12D MVAcm2 Aortic Valve Aortic ValveAortic Stenosis V10.90m/Champ Mean GR.4mmHg V21.30m/Champ Peak GR.7mmHg LVOT Diameter2.5 (1.8-2.4cm)Doppler AVA3.40cm2 Other Information Quality : Technically LimitedRhythm : Technically limited study due to body habitus. Conclusion Mildly reduced left ventricular systolic function estimated ejection fraction 45-50%. In a global fa shion. There is a grade 1 diastolic dysfunction. Normal right ventricular size and dimension. Normal right ventricular systolic function. Normal biatrial size and dimension. Normal aortic valve structure and function. Normal mitral valve structure and function. Normal tricuspid valve structure and function. The pulmonary valve is grossly normal. No pericardial effusion.
[2024-09-25] MEDS ORDERED: ASPI1TAB20 PO (14:30)
[2024-09-25 16:41] VITALS: BP 148/86; PULSE 75; RESP 18; TEMP 98.5; O2SAT 98
--- NOTE | 2024-09-25 16:58 | DVHPNRES ---
Progress Note Date Seen: Sep 25, 2024 Resident Creating Document: MADHU SUAREZ BETSY Has the PT tested + for MRSA If YES, has PT been informed?: No Medical Necessity Reason Pt with a Central, PICC or Fol: No Subjective Review of Systems The patient is a 54-year-old morbidly obese male with a past medical history of Dfiuv-Zeqkzljmv-Hgfja syndrome who presented to [facility] ED for evaluation of cardiac arrest. The patient was sitting at a picnic table when he dropped to the ground. Three cycles of CPR were performed by a family member until paramedics arrived. When paramedics arrived on the scene, he was in ventricular fibrillation, for which he was shocked and received continuous CPR for a few minutes along with one dose of epinephrine. The patient returned to sinus rhythm and was answering questions prior to coming to the ED. At the ED, the patient was complaining of mild chest pain. He denied shortness of breath, palpitations, fever, headache, or any other symptoms. 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 Lab studies were significant for creatinine at 0.9, potassium at 3.4, creatinine at 1.20, AST at 206, ALT at 302, D-dimer at 7.25, and HbA1c at 5.7. Bilateral lower Doppler and head CT scan were within normal limits. A CT of the chest-abdominopelvic area showed suboptimal opacification of the pulmonary artery for the diagnosis of pulmonary embolus. However, no filling defects were seen in the main pulmonary artery or main right or left pulmonary arteries, and there was no saddle embolus present. The patient was seen and examined at the bedside. He is feeling better since admission and has mild chest tenderness. Patient reports: No new complaints Changes from previous H/P or p: No Changes Objective vital signs Vital Sign Date Time Temp Pulse Resp B/P (MAP) Pulse Ox O2 Delivery O2 Flow Rate FiO2 09/25/24 12:05 74 16 96 Nasal Cannula* 2 28 11/3/24 07:35 139/87 (104) 09/24/24 17:20 97.6 97.6 medications Current Medications Medications Dose Ordered Sig/Lindsay Route Start Time Stop Time Status Last Admin Dose Admin Enoxaparin Sodium 130 mg Q12HR SC 09/24/24 22:00 09/25/24 11:06 130 MG Sodium Chloride 10 ml Q8HR IV 09/24/24 22:00 09/25/24 06:00 10 ML Ondansetron HCl 4 mg Q4HP PRN IV 09/24/24 21:00 Acetaminophen/ Hydrocodone Bitart 1 tab Q4HP PRN PO 09/24/24 21:00 Docusate Sodium 100 mg BIDPRN PRN PO 09/24/24 21:00 Acetaminophen 650 mg Q6HP PRN PO 09/24/24 21:00 09/25/24 07:23 650 MG Nitroglycerin 0.4 mg Q5MINP PRN SL 09/24/24 23:30 Morphine Sulfate 2 mg Q30M PRN IV 09/24/24 23:30 Aspirin 81 mg DAILY PO 09/26/24 10:00 Atorvastatin Calcium 80 mg HS PO 09/25/24 22:00 Examination General Appearance: Alert, Oriented X3, Cooperative, No acute distress HEENT: Atraumatic, PERRLA, EOMI, Mucous membrane moist/pink Respiratory: Clear to auscultation, Normal air movement Cardiovascular: Regular rate, Normal S1, Normal S2, No murmurs, mild chest wall tenderness Abdominal: Normal bowel sounds, Soft, No tenderness, No hepatospenomegaly, No masses Extremities: No clubbing, No cyanosis, No edema, Normal pulses, No tenderness/swelling Skin: No rashes, No breakdown, No significant lesion laboratory and microbiology Laboratory Tests 09/25/24 03:30 Test 09/25/24 03:30 Range/Units Serum Glucose 153 H 74-106 mg/dL Labs and/or images reviewed: Labs reviewed by me, Image(s) reviewed by me Problem List/Assessment/Plan Problem List/Assessment/Plan Status post cardiac arrest (per advertising specialist ventricular fibrillation), currently normal sinus rhythm after CPR and defibrillation NSTEMI Troponin downtrending EKG shows nonspecific ST segment changes with WPW type EKG Cardiology is on the board, recommended medical management at the moment Echocardiogram shows, mildly reduced left ventricular systolic function estimated ejection fraction 45-50%. In a global fashion. 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 There are however no filling defects seen in the main pulmonary artery or main right or left pulmonary arteries. There is no saddle embolus present. Lovenox 130 mg b.i.d. DVT prophylaxis On therapeutic Lovenox Diet Cardiac diet Code status Full Code Case discussed with Dr. Bullock Plan discussed with: Patient, Spouse, Daughter, Other (RN) My Orders My Orders Orders - MADHU SUAREZ Procedure Category Date Status Time Aspirin Tablet PHA 09/26/24 In Process 10:00 Atorvastatin (Lipitor) PHA 09/25/24 In Process 22:00 Date of Service: Sep 25, 2024 Billing Provider: MARCELINA BULLOCK DO Common Visit Codes: [id number] INP/OBS CARE(HIGH) MADHU SUAREZ RESDIENT Sep 25, 2024 16:58 MARCELINA BULLOCK DO Oct 03, 2024 07:09
[2024-09-25] MEDS: CLOPIDOGREL BISULFATE 75 MG TAB PO ONE (17:40)
[2024-09-25] MEDS: HYDROcodone-ACET 5/325MG TAB PO PRN (17:41)
[2024-09-25 20:00] VITALS: PULSE 72
[2024-09-25 21:00] VITALS: BP_SYST 139; BP_DIAS 76; BP_DIAS 9; PULSE 76; RESP 18; TEMP 98.2; O2SAT 97
--- NOTE | 2024-09-25 21:06 | DVH ---
CHEST RADIOGRAPH Indication:Rib fracture Technique: Single frontal view of the chest was obtained Comparison: None FINDINGS: Lines and Tubes: None Lungs: No focal consolidation. Pleura: No effusion. No pneumothorax. Cardiomediastinal contours: Cardiomegaly Bones: No acute osseous abnormality. IMPRESSION: 1. Cardiomegaly no pneumothorax.
[2024-09-25] MEDS: ATORVASTATIN 20 MG TAB PO SCH (22:11)
[2024-09-26] VITALS (14 sets, daily range): BP systolic 124–203; BP diastolic 75–109; PULSE 67–74; RESP 12–19; TEMP 97.6–98.2; O2SAT 92–99
[2024-09-26 05:43] LABS: Alanine Aminotransferase 204 U/L (7-40); Albumin 3.9 g/dL (3.2-4.8); Alkaline Phosphatase 64 U/L (46-116); Anion Gap 6 (5-15); Aspartate Aminotransferase 85 U/L (13-40); BUN/Creatinine Ratio 15.8 (10.0-20.0); Bilirubin, Total 0.8 mg/dL (0.2-1.0); Blood Urea Nitrogen 15 mg/dL (9-23); Calcium 8.6 mg/dL (8.7-10.4); Carbon Dioxide 25 mmol/L (20-31); Chloride 109 mmol/L (98-107); Glucose 115 mg/dL (74-106); INR 1.06 (0.9-1.15); Partial Thromboplastin Time 36.5 SEC (24.5-34.5); Prothrombin Time 11.2 sec (9.3-11.8); Sodium 140 mmol/L (136-145)
[2024-09-26] MEDS: FUROSEMIDE 40 MG/4 ML VIAL IV ONE (07:30)
[2024-09-26 07:45] LABS: Urine Bacteria FEW /hpf (None Seen); Urine Blood Negative /uL (Negative); Urine Budding Yeast OCCASIONAL /hpf (None Seen); Urine Clarity Clear (Clear); Urine Color Yellow (Yellow); Urine Mucus FEW (None Seen); Urine Protein, UAD 1+ (Negative); Urine Specific Gravity 1.034 (1.001-1.035); Urine Urobilinogen Normal (Negative); Urine WBC 1 /hpf (0 - 3); Urine pH 5.5 (5.0-9.0)
[2024-09-26 09:50] LABS: Amphetamine Screen, Urine Neg (NEGATIVE); Barbiturate Scree,Urine Neg (NEGATIVE)
[2024-09-26 09:51] LABS: Benzodiazephine Screen, Urine Neg (NEGATIVE)
[2024-09-26 09:52] LABS: Cannabinoid Screen, Urine Neg (NEGATIVE); Cocaine Screen, Urine Neg (NEGATIVE); Opiate Scree,Urine Neg (NEGATIVE); Phencyclidine Screen, Urine Neg (NEGATIVE)
[2024-09-26] MEDS: CLOPIDOGREL BISULFATE 75 MG TAB PO SCH (09:57)
[2024-09-26] MEDS: ASPirin 81 mg TAB PO SCH (09:57)
--- NOTE | 2024-09-26 10:51 | ECG ---
[facility] Test Date: 2024-09-24 Test Time: 20:16:48 Pat Name: REJI GIBSON Department: ED Room: 0298T Gender: M Improvement Director: AQUILES : 1970 Requested By: AMERICO ECHAVARRIA Order Number: [id number] Reading MD: Michael Magdaleno Measurements Intervals [place] Rate: 77 P: 42 CT: 157 QRS: -16 QRSD: 107 T: 28 QT: 422 QTc: 478 Interpretive Statements Sinus rhythm Borderline left axis deviation RSR' in V1 or V2, probably normal variant Borderline T abnormalities, anterior leads Borderline prolonged QT interval Electronically Signed On 09-29-2024 11:11:28 PST by Michael Magdaleno Please click the below link to view image of tracing.
[2024-09-26] MEDS: ANGIOMAX 250 MG VIAL IV ONE ×2 (11:43→12:10)
[2024-09-26] MEDS: fentaNYL CITRATE 100 MCG/2 ML VL ONE (11:43)
[2024-09-26] MEDS: MIDAZOLAM HCL 2MG/2ML 2ml VIAL (1mg/ml) ONE (11:44)
[2024-09-26] MEDS: SODIUM CHL 0.9% 50 ML ONE ×2 (11:44→12:10)
[2024-09-26] MEDS: HEPARIN SODIUM (PORCINE) 5000 UNITS/ML 1ML VIAL ONE (11:44)
[2024-09-26] MEDS: VERAPAMIL 2.5MG/ML INJ 2ML VIAL IV ONE (11:45)
[2024-09-26] MEDS: LIDOCAINE 2%HCL (LOCAL ANESTH.) INJ 20ML MDV ONE (11:45)
[2024-09-26] MEDS: IODIXANOL 320MG/ML 100ML BTL IV ONE (11:45)
[2024-09-26] MEDS: CLOPIDOGREL BISULFATE 75 MG TAB ONE ×2 (12:36→12:37)
--- NOTE | 2024-09-26 13:25 | DVHOP2 ---
Operative Report -Cardiology Report Details Date: 09/26/24 Preop Diagnosis: Status post cardiac arrest with a non ST-elevation myocardial infarction Postop Diagnosis: Coronary angiography revealed critical candy wrapper lesion in the proximal mid LAD for which it was stented using single drug-eluting stent. This was interrogated using intravascular ultrasound which shows well-opposed stents post implantation. Surgeon: Nader Luna MD Anesthesiologist: Conscious sedation using25 mcg of fentanyl as well as a mg IV midazolam. Anesthesia: Local Consent: The patient was informed of the risks and benefits of the procedure. These include but are not limited to complications of anesthesia, postoperative infection, incomplete relief of symptoms, recurrence of symptoms, damage to blood vessels, nerves and tendons, deep venous thrombosis, pulmonary embolism and possible need for repeat surgery in the future. Indications for Surgery: 54-year-old male with PMH for Taidk-Tluwurzse-Zbzvd syndrome, presents to the hospital s/p cardiac arrest. Patient and are from [place] and was visiting up at [facility] [place] for patient states he had 1 beer and had gotten up to go use the restroom when patient suddenly became unresponsive and was helped by local firefighters noting patient was agonal breathing and therefore CPR was initiated. Patient underwent 2 rounds of CPR with 1 shock delivered for ventricular fibrillation, possible 1 round of epi per . Rosc was achieved and patient was becoming more responsive and answering questions. Patient was planned to be transported via air to [facility] or [place] though due to weather was unable to fly therefore patient was then transported here to ER. Of note patient has been walking daily with and had just done a hike earlier that day, Derivix results noted heart rate reached roughly 130 beats per minute during exertion with rest of day showing mean heart rate between 60-70 beats per minute on mobile device heart rate monitoring system. Patient denies any remembered palpitations, lightheadedness, chest pains prior to passing out. Upon evaluation patient vital signs were stable, patient is breathing stable on 2 L NC. Patient does complain of chest pain, anterior thoracic area, s/p compressions, increases with deep breathing. Patient also noted have elevated troponin trending 327, 442, 646, 688, 489. LFTs elevated with AST 206 and ALT 302.EKG reviewed and shows sinus rhythm at 78 beats per minute, no significant ST abnormality noted, no delta wave noted. QTC prolongation at 511 ms. Name of Procedure Performed 1. Left heart catheterization with left ventricular end-diastolic pressure measurement. 2. selective right and left coronary angiography utilizing right transradial approach. 3. Coronary angioplasty to the prox LAD using single drug-eluting stent. 4. Intravascular ultrasound interrogation post LAD stenting to ensure well- opposed stent to the wall of the LAD vessel. 5. Conscious sedation using25 mcg of fentanyl as well as a mg IV midazolam. Procedure Details Procedure Details: Procedure note. After informed consent was obtained risks, benefits, complications, alternatives were discussed in details with the patient who agrees to have the procedure done. At the beginning of the procedure the right wrist and the right coronary artery were prepped and draped in regular sterile fashion. Patient received conscious sedation with25 mcg of fentanyl as well as a mg of midazolam. Then, a 2% xylocaine was given to the right wrist area before a six [place] sheath was placed without difficulty using modified Seldinger technique. A cocktail of 2.5 mg of verapamil as well as 100 mcg of nitroglycerin were given intra arterial to prevent vasospasm findings were as follows: 1. Left heart catheterization with left ventricular end-diastolic pressure measurement: With the help of a tiger five [place] catheter as well as a J-tip we were able to cross the aortic valve and measured left ventricular end-diastolic pressure which was elevated at 16 mm of mercury. There was no gradient across the aortic valve on the pullback. 2. Selective right and left coronary angiography utilizing right transradial approach: 1. Right coronary artery comes off the right coronary cusp it is a large dominant artery, it bifurcates distally into large posterior descending artery as well as large posterolateral branch. There was no significant atherosclerotic plaquing noted in the right coronary artery. 2. 2. Left main comes off left coronary cusp, it is a large and has no significant atherosclerotic plaquing. Bifurcates distally into a large left anterior descending artery as well as a large left circumflex system 3. Left anterior descending artery has a candy wrapper lesion of the proximal to mid segment there were two lesion at 90% of the proximal and mid part of the LAD before the takeoff of the 2nd diagonal branch. This is likely the culprit of the patient's cardiac arrest 3. Left circumflex artery comes off the left main it has no significant atherosclerotic disease. However, the 1st obtuse marginal branch has high takeoff and has moderate disease of 60-70%. 3. Angioplasty to proximal mid tandem lesion of the LAD using single drug- eluting stent and intravascular ultrasound interrogation for stent optimization: The tiger five [place] catheter was exchanged for an XB 3.5 guiding catheter, 0.014 mm Zack blue wire was used to engage the left anterior descending artery. Lesion was then pre-dilated using 2.5 x 20 balloon and then was stented using 3.5 x 30 marci Drew drug-eluting stent. Up to four atmospheric pressure. Intravascular ultrasound interrogation was done post implantation indicating under deployed stent, the stent was then post dilated furthermore using four 0 x 20 balloon up to 16 atmospheric pressure a 2nd round of intravascular ultrasound shows well-opposed stent to the wall of the vessel. Obvious complication. Excellent result was obtained. Anticoagulation antiplatelet therapy during the procedure: Patient received Angiomax continuous intravenous infusion, in addition to loading Plavix of 600 mg dose in addition to aspirin at 162 mg dose. Impression and plan: 1. Successful primary PCI to prox mid tandem candy wrapper lesion to the LAD using single drug-eluting stent. 2. Patient would need to be on dual antiplatelet therapy for halfway. 3. Patient would need aggressive medical therapy including high-dose statin to achieve LDL target of less than 50 mg/dL. 4. 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 5. Patient would need an echocardiogram to assess left ventricular systolic function and proceed with goal-directed therapy as indicated. Condition Good [facility] Clinical Frailty Scale [facility] Clinical Frailty Scale: Moderately Frail Stress Test Stress Test Performed: No Dominance Dominance: Right FAYE FAYE Flow: Post- Intervention (FAYE-3), Pre-Intervention (FAYE-2) Lesion Lesion Complexity: High/C Disposition NADER LUNA MD Sep 26, 2024 13:25
--- NOTE | 2024-09-26 15:02 | DVHPNRES ---
Progress Note Date Seen: Sep 26, 2024 Resident Creating Document: MADHU SUAREZ BETSY Has the PT tested + for MRSA If YES, has PT been informed?: No Medical Necessity Reason Pt with a Central, PICC or Fol: No Subjective Review of Systems The patient was seen and examined at the bedside. He is feeling better since admission and has mild chest tenderness. Patient also complaining of burning sensation on the defibrillation pad area. Left side catheterization was performed, and a stent with single drug-eluting stent was put in LAD through right radial artery approach. Patient was seen after the procedure, patient had no symptoms and no local complication including hematoma or neurovascular complication. Patient reports: No new complaints, Feels better Changes from previous H/P or p: No Changes Objective vital signs Vital Sign Date Time Temp Pulse Resp B/P (MAP) Pulse Ox O2 Delivery O2 Flow Rate FiO2 09/26/24 12:36 69 14 137/92 (107) 93 09/26/24 12:30 97.6 97.6 09/26/24 08:00 Nasal Cannula* 2 28 Total Intake and Output 09/25/24 09/25/24 09/26/24 15:00 23:00 07:00 Intake Total 75 ml 50 ml Output Total 750 ml 800 ml Balance -675 ml -750 ml medications Current Medications Medications Dose Ordered Sig/Lindsay Route Start Time Stop Time Status Last Admin Dose Admin Enoxaparin Sodium 130 mg Q12HR SC 09/24/24 22:00 09/25/24 22:11 130 MG Sodium Chloride 10 ml Q8HR IV 09/24/24 22:00 09/26/24 14:19 10 ML Ondansetron HCl 4 mg Q4HP PRN IV 09/24/24 21:00 Acetaminophen/ Hydrocodone Bitart 1 tab Q4HP PRN PO 09/24/24 21:00 09/26/24 01:26 1 TAB Docusate Sodium 100 mg BIDPRN PRN PO 09/24/24 21:00 Acetaminophen 650 mg Q6HP PRN PO 09/24/24 21:00 09/25/24 07:23 650 MG Nitroglycerin 0.4 mg Q5MINP PRN SL 09/24/24 23:30 Morphine Sulfate 2 mg Q30M PRN IV 09/24/24 23:30 Aspirin 81 mg DAILY PO 09/26/24 10:00 Atorvastatin Calcium 80 mg HS PO 09/25/24 22:00 09/25/24 22:11 80 MG Clopidogrel Bisulfate 75 mg DAILY PO 09/26/24 10:00 Examination General Appearance: Alert, Oriented X3, Cooperative, No acute distress HEENT: Atraumatic, PERRLA, EOMI, Mucous membrane moist/pink Respiratory: Clear to auscultation, Normal air movement Cardiovascular: Regular rate, Normal S1, Normal S2, No murmurs, mild chest wall tenderness Abdominal: Normal bowel sounds, Soft, No tenderness, No hepatosplenomegaly, No masses Extremities: Pressure device over right wrist; No clubbing, No cyanosis, No edema, Normal pulses, No tenderness/swelling Skin: No rashes, No breakdown, No significant lesion laboratory and microbiology Laboratory Tests 09/26/24 04:20 09/25/24 03:30 Test 09/26/24 04:20 Range/Units Serum Glucose 115 H 74-106 mg/dL Microbiology Date/Time Source Procedure Growth Status 09/24/24 21:12 Blood Blood Culture - Preliminary NO GROWTH AFTER 24 HOURS OF INCUBATION. Resulted Labs and/or images reviewed: Labs reviewed by me, Image(s) reviewed by me Problem List/Assessment/Plan Problem List/Assessment/Plan Chest pain due to ACS Status post cardiac arrest (per wrapper layer and examiner soft work ventricular fibrillation), currently normal sinus rhythm after CPR and defibrillation NSTEMI Troponin downtrending EKG shows nonspecific ST segment changes with WPW type EKG Cardiology is on the board, Coronary angioplasty performed and a single drug- eluting stent was placed in prox LAD Echocardiogram shows, mildly reduced left ventricular systolic function estimated ejection fraction 45-50%. In a global fashion. 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 There are however no filling defects seen in the main pulmonary artery or main right or left pulmonary arteries. There is no saddle embolus present. DVT prophylaxis: Lovenox Diet: Cardiac diet 66 minutes of critical care time Goals of care discussed with the patient and his family for 20 minutes; full code Case discussed with Plan discussed with: Patient, Spouse, Daughter, Other (RN) My Orders My Orders Orders - MADHU SUAREZ RESDISUSY Procedure Category Date Status Time Chest Xray 1 View XY 09/25/24 Resulted 16:40 Clopidogrel Bisulfate PHA 09/26/24 In Process (Plavix) 10:00 Addendum Addendum Addendum I was physically present for the vanessa portions of the service provided to patient by THE RESIDENT. I have reviewed the documentation, discussed the case with resident and agree with the resident's documentation except as noted. Also the patient's clinical case was discussed with the patient's nurse. This medical document was created using an electronic medical record system with computerized dictation system. Although this document has been carefully reviewed, there might still be some phonetic and typographical errors. These areas are purely typographical due to imperfections of the software programs, and do not reflect any compromise in the patient's medical care. Late signature. Date of Service: Sep 26, 2024 Billing Provider: ISABELLE MURCIA MD Common Visit Codes: [id number]-[id number] CARE 30-74 MIN (66 minutes) Secondary Visit Codes: [id number] CARE PLAN 30 MINUTES (20 minutes) MADHU SUAREZ RESDISUSY Sep 26, 2024 15:02 ISABELLE MURCIA MD Sep 27, 2024 08:49
--- NOTE | 2024-09-26 15:41 | DVHPN2 ---
Consult Progress Note Subjective Patient reports: Feels better Objective vital signs Vital Sign Date Time Temp Pulse Resp B/P (MAP) Pulse Ox O2 Delivery O2 Flow Rate FiO2 09/26/24 13:00 98.1 72 17 148/90 (109) 99 98.1 09/26/24 08:00 Nasal Cannula* 2 28 Total Intake and Output 09/25/24 09/25/24 09/26/24 15:00 23:00 07:00 Intake Total 75 ml 50 ml Output Total 750 ml 800 ml Balance -675 ml -750 ml medications Current Medications Medications Dose Ordered Sig/Lindsay Route Start Time Stop Time Status Last Admin Dose Admin Sodium Chloride 10 ml Q8HR IV 09/24/24 22:00 09/26/24 14:19 10 ML Ondansetron HCl 4 mg Q4HP PRN IV 09/24/24 21:00 Acetaminophen/ Hydrocodone Bitart 1 tab Q4HP PRN PO 09/24/24 21:00 09/26/24 01:26 1 TAB Docusate Sodium 100 mg BIDPRN PRN PO 09/24/24 21:00 Acetaminophen 650 mg Q6HP PRN PO 09/24/24 21:00 09/25/24 07:23 650 MG Nitroglycerin 0.4 mg Q5MINP PRN SL 09/24/24 23:30 Morphine Sulfate 2 mg Q30M PRN IV 09/24/24 23:30 Aspirin 81 mg DAILY PO 09/26/24 10:00 Atorvastatin Calcium 80 mg HS PO 09/25/24 22:00 09/25/24 22:11 80 MG Clopidogrel Bisulfate 75 mg DAILY PO 09/26/24 10:00 Examination: GENERAL:Normal, LUNGS:Normal, CVS:Normal, NEURO:Normal laboratory and microbiology Laboratory Tests 09/26/24 04:20 09/25/24 03:30 Test 09/26/24 04:20 Range/Units Serum Glucose 115 H 74-106 mg/dL Problem List/Assessment/Plan Problem List/Assessment/Plan Ventricular fibrillation arrest s/p cardiopulmonary resuscitation with return of spontaneous circulation Coronary artery disease status post PTCA x1 HAKEEM to LAD Acute on chronic HFmrEF, 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 Burns): Transthoracic echocardiogram reveals EF 45-50%. Patient underwent a coronary angiogram in which a successful PCI to proximal lesion to LAD using a single drug-eluting stent was placed. We will recommend dual antiplatelet therapy, beta-jony, and aggressive statin therapy at this time. We will also recommend for EP evaluation for history of WPW. Thank you for allowing us to care for this patient. Please call with any questions or concerns. This medical document was created using an electronic medical record system with voice recognition software and computerized dictation system. Although this document has been carefully reviewed, there might still be some phonetic and typographical errors. Occasional wrong-word or ``sound-alike substitutions may have occurred due to the inherent limitations of voice recognition software. These areas are purely typographical due to imperfections of the software programs and do not reflect any compromise in the patient's medical care. Please read the chart carefully and recognize, using context, where these substitutions have occurred. Plan discussed with: Patient Date of Service: Sep 26, 2024 Billing Provider: SONIDO BURNS MD Common Visit Codes: [id number] INP/OBS CARE(HIGH) SIMRAN BRODY [facility] Sep 26, 2024 15:41
[2024-09-26 21:40] LABS: COVID19 ANTIGEN SOFIA FIA NEGATIVE (NEGATIVE); Rapid Influenza A Negative (Negative); Rapid Influenza B Negative (Negative)
[2024-09-27] VITALS (8 sets, daily range): BP systolic 104–134; BP diastolic 51–80; PULSE 64–78; RESP 16–20; TEMP 98–98.5; O2SAT 94–98
[2024-09-27 05:03] LABS: Basophils # (auto) 0 10 ^3/uL (0-0.2); Basophils % (auto) 0.5 % (0.0-2.0); Eosinophils # (auto) 0.1 10 ^3/uL (0-0.8); Eosinophils % (auto) 1.9 % (0.0-7.0); Lymphocytes # (auto) 1.3 10 ^3/uL (0.4-5.4); Mean Corpuscular Hemoglobin 28.2 pg (28.0-32.0); Mean Corpuscular Hgb Conc. 33.4 g/dL (32.0-36.0); Mean Corpuscular Volume 84.4 fL (80.0-100.0); Monocytes # (auto) 0.4 10 ^3/uL (0-1.3); Monocytes % (auto) 7.3 % (0.0-12.0); Neutrophils # (auto) 3.9 10 ^3/uL (1.6-8.6); Neutrophils % (auto) 67.3 % (37.0-80.0); Platelet Count (auto) 176 10^3/uL (140-450); Red Blood Cells 4.98 10^6/uL (4.5-5.90); Red Cell Distribution Width 14.9 % (11.8-14.3); White Blood Cell 5.7 10^3/uL (4.4-10.8)
[2024-09-27 05:25] LABS: Alanine Aminotransferase 138 U/L (7-40); Albumin 3.8 g/dL (3.2-4.8); Alkaline Phosphatase 65 U/L (46-116); Anion Gap 7 (5-15); Aspartate Aminotransferase 41 U/L (13-40); BUN/Creatinine Ratio 16.3 (10.0-20.0); Blood Urea Nitrogen 14 mg/dL (9-23); Calcium 8.9 mg/dL (8.7-10.4); Carbon Dioxide 24 mmol/L (20-31); Chloride 107 mmol/L (98-107); Glucose 106 mg/dL (74-106); Sodium 138 mmol/L (136-145)
[2024-09-27 05:26] LABS: Bilirubin, Total 0.8 mg/dL (0.2-1.0); Total Protein 6.1 g/dL (5.7-8.2)
[2024-09-27] MEDS ORDERED: ATOR20TA50 PO (05:52)
[2024-09-27] MEDS ORDERED: METO-6 PO (05:52)
[2024-09-27] MEDS ORDERED: CLOP75TA70 PO (05:52)
[2024-09-27] MEDS ORDERED: ASPI-325 PO (05:52)
[2024-09-27] MEDS ORDERED: EMPA1TAB PO (05:53)
--- NOTE | 2024-09-27 10:18 | DVHPN2 ---
Consult Progress Note Subjective Other Systems: Right wrist dressing clean/dry/intact, no signs of bleeding or hematoma Objective vital signs Vital Sign Date Time Temp Pulse Resp B/P (MAP) Pulse Ox O2 Delivery O2 Flow Rate FiO2 09/27/24 09:00 98.0 65 16 134/80 (98) 97 98.0 09/26/24 20:00 Nasal Cannula* 2 28 Total Intake and Output 09/26/24 09/26/24 09/27/24 15:00 23:00 07:00 Intake Total 0 ml 300 ml 125 ml Output Total 650 ml 450 ml Balance 0 ml -350 ml -325 ml medications Current Medications Medications Dose Ordered Sig/Lindsay Route Start Time Stop Time Status Last Admin Dose Admin Sodium Chloride 10 ml Q8HR IV 09/24/24 22:00 09/27/24 05:59 10 ML Ondansetron HCl 4 mg Q4HP PRN IV 09/24/24 21:00 Acetaminophen/ Hydrocodone Bitart 1 tab Q4HP PRN PO 09/24/24 21:00 09/26/24 01:26 1 TAB Docusate Sodium 100 mg BIDPRN PRN PO 09/24/24 21:00 Acetaminophen 650 mg Q6HP PRN PO 09/24/24 21:00 09/26/24 19:59 650 MG Nitroglycerin 0.4 mg Q5MINP PRN SL 09/24/24 23:30 Morphine Sulfate 2 mg Q30M PRN IV 09/24/24 23:30 Aspirin 81 mg DAILY PO 09/26/24 10:00 Atorvastatin Calcium 80 mg HS PO 09/25/24 22:00 09/26/24 21:31 80 MG Clopidogrel Bisulfate 75 mg DAILY PO 09/26/24 10:00 Metoprolol Succinate 25 mg DAILY PO 09/27/24 10:00 Enoxaparin Sodium 40 mg DAILY SC 09/28/24 10:00 Examination: GENERAL:Normal, LUNGS:Normal, CVS:Normal, NEURO:Normal laboratory and microbiology Laboratory Tests 09/27/24 04:34 Test 09/27/24 04:34 Range/Units Serum Glucose 106 74-106 mg/dL Problem List/Assessment/Plan Problem List/Assessment/Plan Ventricular fibrillation arrest s/p cardiopulmonary resuscitation with return of spontaneous circulation Coronary artery disease status post PTCA x1 HAKEEM to LAD Acute on chronic HFmrEF, 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 Burns): Transthoracic echocardiogram reveals EF 45-50%. Patient underwent a coronary angiogram in which a successful PCI to proximal lesion to LAD using a single drug-eluting stent was placed. We will recommend dual antiplatelet therapy, beta-jony, ZAYDA inhibitor and aggressive statin therapy at this time. There is no further inpatient cardiac workup indicated at this time. Pending EP consultation and recommendations. The patient is to follow up with Cardiology in the outpatient setting in 1-2 weeks post discharge. Thank you for allowing us to care for this patient. Please call with any questions or concerns. This medical document was created using an electronic medical record system with voice recognition software and computerized dictation system. Although this document has been carefully reviewed, there might still be some phonetic and typographical errors. Occasional wrong-word or ``sound-alike substitutions may have occurred due to the inherent limitations of voice recognition software. These areas are purely typographical due to imperfections of the software programs and do not reflect any compromise in the patient's medical care. Please read the chart carefully and recognize, using context, where these substitutions have occurred. Plan discussed with: Patient, Spouse Date of Service: Sep 27, 2024 Billing Provider: SONIDO BURNS MD Common Visit Codes: [id number] INP/OBS CARE(HIGH) SIMRAN BRODY SEASONING SPRAYER Sep 27, 2024 10:18
[2024-09-27] MEDS: METOPROLOL SUCCINATE XL 50 MG TAB PO SCH (10:49)
[2024-09-27 12:33] LABS: Chloride 106 mmol/L (98-107); Sodium 137 mmol/L (136-145)
[2024-09-27 12:34] LABS: Anion Gap 6 (5-15); Calcium 9.8 mg/dL (8.7-10.4); Carbon Dioxide 25 mmol/L (20-31)
[2024-09-27 12:39] LABS: Blood Urea Nitrogen 15 mg/dL (9-23); Glucose 110 mg/dL (74-106); Triglycerides 143 mg/dL (< 150)
[2024-09-27 12:40] LABS: LDL Cholesterol 135 mg/dL (< 100)
[2024-09-27 12:41] LABS: Cholesterol 200 mg/dL (< 200); HDL Cholesterol 40 mg/dL (40-59)
--- NOTE | 2024-09-27 15:19 | DVHINCON2 ---
Date of service: Sep 27, 2024 Referring Physician Nedra STILL Reason for Consultation WPW history with sudden cardiac arrest (LAD found occluded with stent placement on [facility]) History of Present Illness Devin Ulloa is a 54 y/o male with h/o WPW presented to the ED after cardiac arrest while at an event in [place] with his . Pt is reported to have been sitting at a picnic table then became unresponsive, collapsing to ground. 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 Once EMS arrived, he was reported to have been in Vfib and received a shock from AED. [place] [facility] for management. At [facility], the patient underwent left and right heart cath with angioplasty of the proximal mid tandem lesions of the LAD with HAKEEM placement. EP is consulted due to patient h/o WPW. Patient states original diagnosis was about 10-15 years back at which time he underwent treadmill stress test with no inducible arrhythmias. He is managed by cardiology in [place]. He denies any palpitations or tachycardia. Past Medical History WPW Family History: Alzheimer's disease G8 MOTHER Cardiovascular disease G8 FATHER Hypercholesterolemia G8 SISTER, Onset: - 40 Allergies: Coded Allergies: NO KNOWN ALLERGIES (Unverified , 09/24/24) Home Meds Active Scripts Lisinopril (Lisinopril) 5 Mg Tab, 5 MG PO DAILY for 30 Days, #30 TAB Prov:KIRSTY CAMPO RESIDENT 09/27/24 Empagliflozin (Jardiance) 10 Mg Tab, 10 MG PO DAILY for 30 Days, #30 TAB Prov:JAHAIRAKIRSTY [facility] 09/27/24 Metoprolol Succinate (Toprol Xl) 50 Mg Tab, 25 MG PO DAILY for 30 Days, #15 TAB Prov:[facility] 09/27/24 Clopidogrel Bisulfate (CLOPIDOGREL) 75 Mg Tab, 75 MG PO DAILY for 30 Days, #30 TAB Prov:[facility] 09/27/24 Atorvastatin Calcium (ATORVASTATIN CALCIUM) 20 Mg Tab, 80 MG PO HS for 30 Days, #120 TAB Prov:KIRSTY CAMPO [facility] 09/27/24 Aspirin (Aspirin Low Dose) 81 Mg Tab, 81 MG PO DAILY for 30 Days, #30 TAB Prov:JAHAIRAKIRSTY GUNDERS[facility] 09/27/24 Reported Medications Aspirin (Aspir-81) 81 Mg Tab, 1 TAB PO DAILY, #30 TAB 5 Refills 09/25/24 Current Medications Current Medications Medications (Trade) Dose Ordered Sig/Lindsay Route PRN Reason Start Time Stop Time Status Last Admin Metoprolol Succinate (Toprol Xl) 25 mg DAILY PO 09/27/24 10:00 09/27/24 10:49 Enoxaparin Sodium (Lovenox) 40 mg DAILY SC 09/28/24 10:00 Empaglifozin (Jardiance) 10 mg DAILY PO 09/28/24 10:00 Lisinopril (Zestril Tablet) 5 mg DAILY PO 09/28/24 10:00 Review of Systems Currently Denies chest pain, shortness of breath, palpitations, dizziness, light-headedness, or syncope. Endorses some chest heaviness, SOB, and aching in his left shoulder with activity days prior the his cardiac arrest. Vital Signs Vital Signs Date Time Temp Pulse Resp B/P (MAP) Pulse Ox O2 Delivery O2 Flow Rate FiO2 09/27/24 13:00 98.0 73 20 126/76 (93) 94 98.0 09/26/24 20:00 Nasal Cannula* 2 28 Physical Exam General: No acute distress. Awake and conversant. Morbidly obese Neck: Neck is supple. No masses or thyromegaly, no JVD, No carotid bruit. Respiratory: Respirations are non-labored. Lungs are clear to auscultation. Skin: Warm. CV: RRR, Normal heart sounds, no murmurs. No lower extremity edema. Neuro: AAo x 4 Labs/Diagnostic Data Labs Test 09/27/24 12:00 09/27/24 04:34 09/26/24 20:54 09/26/24 06:30 Range/Units Sodium Level 137 136-145 mmol/L Potassium Level 4.0 3.5-5.1 mmol/L Chloride Level 106 98-107 mmol/L Carbon Dioxide Level 25 20-31 mmol/L Anion Gap 6 5-15 Blood Urea Nitrogen 15 9-23 mg/dL Creatinine 0.94 0.700-1.30 mg/dL Glomerular Filtration Rate Calc 95 >90 mL/min BUN/Creatinine Ratio 16.0 10.0-20.0 Serum Glucose 110 H 74-106 mg/dL Calcium Level 9.8 8.7-10.4 mg/dL Triglycerides Level 143 < 150 mg/dL Cholesterol Level 200 H < 200 mg/dL LDL Cholesterol 135 H < 100 mg/dL HDL Cholesterol 40 40-59 mg/dL White Blood Count 5.7 # 4.4-10.8 10^3/uL Red Blood Count 4.98 4.5-5.90 10^6/uL Hemoglobin 14.0 13.5-17.5 g/dL Hematocrit 42.0 41.0-53.0 % Mean Corpuscular Volume 84.4 80.0-100.0 fL Mean Corpuscular Hemoglobin 28.2 28.0-32.0 pg Mean Corpuscular Hemoglobin Concent 33.4 32.0-36.0 g/dL Red Cell Distribution Width 14.9 H 11.8-14.3 % Platelet Count 176 140-450 10^3/uL Mean Platelet Volume 8.5 6.9-10.8 fL Neutrophils (%) (Auto) 67.3 37.0-80.0 % Lymphocytes (%) (Auto) 23.0 10.0-50.0 % Monocytes (%) (Auto) 7.3 0.0-12.0 % Eosinophils (%) (Auto) 1.9 0.0-7.0 % Basophils (%) (Auto) 0.5 0.0-2.0 % Neutrophils # (Auto) 3.9 1.6-8.6 10 ^3/uL Lymphocytes # (Auto) 1.3 0.4-5.4 10 ^3/uL Monocytes # (Auto) 0.4 0-1.3 10 ^3/uL Eosinophils # (Auto) 0.1 0-0.8 10 ^3/uL Basophils # (Auto) 0 0-0.2 10 ^3/uL Nucleated Red Blood Cells 0.0 % Total Bilirubin 0.8 0.2-1.0 mg/dL Aspartate Amino Transferase (AST) 41 H 13-40 U/L Alanine Aminotransferase (ALT) 138 H 7-40 U/L Alkaline Phosphatase 65 46-116 U/L Total Protein 6.1 5.7-8.2 g/dL Albumin 3.8 3.2-4.8 g/dL Influenza Type A Antigen Negative Negative Influenza Type B Antigen Negative Negative SARS-CoV-2 Antigen (Rapid) Negative NEGATIVE Urine Color Yellow Yellow Urine Clarity Clear Clear Urine pH 5.5 5.0-9.0 Urine Specific [place] 1.034 1.001-1.035 Urine Protein 1+ H Negative Urine Ketones Trace Negative Urine Blood Negative Negative /uL Urine Nitrite Negative Negative Urine Bilirubin Negative Negative Urine Urobilinogen Normal Negative mg/dL Urine Leukocyte Esterase Negative Negative /uL Urine RBC 1 0 - 3 /hpf Urine WBC 1 0 - 3 /hpf Urine Squamous Epithelial Cells Few <5 /hpf Urine Bacteria Few H None Seen /hpf Urine Mucus Few None Seen Urine Yeast (Budding) Occasional None Seen /hpf Urine Glucose Trace Normal mg/dL Urine Opiates Screen Neg NEGATIVE Urine Fentanyl Screen Neg NEGATIVE Urine Barbiturates Screen Neg NEGATIVE Urine Phencyclidine Screen Neg NEGATIVE Urine Amphetamines Screen Neg NEGATIVE Urine Benzodiazepines Screen Neg NEGATIVE Urine Cocaine Screen Neg NEGATIVE Urine Cannabinoids Screen Neg NEGATIVE Test 09/26/24 04:20 09/25/24 12:02 09/25/24 03:30 09/24/24 21:12 Range/Units Prothrombin Time 11.2 9.3-11.8 sec Prothrombin Time INR 1.06 0.9-1.15 Activated Partial Thromboplast Time 36.5 H 24.5-34.5 SEC Troponin I High Sensitivity 220 *H </=54 ng/L Magnesium Level 2.1 1.6-2.6 mg/dL D-Dimer, Quantitative 7.25 H 0.0-0.49 mg/L FEU Lactic Acid Level 1.5 0.4-2.0 mmol/L Test 09/24/24 18:05 Range/Units Hemoglobin A1c 5.7 <5.7 % A1C B-Type Natriuretic Peptide 42.46 0-100 pg/mL Microbiology Date/Time Source Procedure Growth Status 09/24/24 21:12 Blood Blood Culture - Preliminary NO GROWTH AFTER 48 HOURS OF INCUBATION. Resulted Plan/Recommendation Assessments: Cardiac arrest ACS with HAKEEM placement h/o WPW Morbid obesity EP recommendations: Patient has questional Delta Wave on telemetry and EKG review Arrhythmia that ensued to VFib is very questionable in correlation with questionable delta wave. LAD lesion is likely the culprit and cause of arrest. As Vfib is documented and patient received a shock in conjunction with CPR, is it recommended that patient wear a Zoll Lifevest x3 months for secondary prevention of cardiac arrest. Zoll rep Jeovanny has been contacted and ordered placed with social media job titles. NPI # [id number]. Remainder of cardiac management per primary cardiology. Cardiac monitoring Rate and rhythm surveillance Hemodynamic monitoring. Avoid hypertension and hypotension. Monitor and maintain electrolytes and renal function. Supplement as needed to maintain K > 4.0 and Mg > 2.0. Monitor Hgb and transfuse if Hgb < 7.0. Lifestyle and risk modification counseling All available labs, EKGs, and images were personally reviewed Patient's status, findings, and plan of care was discussed and reviewed with supervising physician Dr. Elizondo, who is in agreement with current plan of care. Plan of care discussed with and agreed upon by the patient/family/Primary RN. Prognosis:Guarded Thank you for allowing me to participate in the care of this patient. Further recommendations will depend on clinical progression, hospitalist, and other consultants. Will continue to follow with Primary. If you have any questions, please do not hesitate to contact me. A total of 75 minutes was spent reviewing the patient record, examining the patient, making a diagnostic and therapeutic plan, discussing this plan with medical personnel, following up on diagnostic studies and following the patient for clinical stability including any and all procedures. At least 50% of this time was spent in direct, [id number] contact. Plan discussed with: Patient, Spouse, Other (RN) Provider Statement: I have reviewed the case with my supervising physician. We have agreed with the plan of care. LEORA ANGELES Sep 27, 2024 15:19
[2024-09-27] MEDS ORDERED: LISI-275 PO (15:50)
--- NOTE | 2024-09-27 16:14 | DVHPNRES ---
Progress Note Date Seen: Sep 27, 2024 Resident Creating Document: MADHU SUAREZ BETSY Has the PT tested + for MRSA If YES, has PT been informed?: No Medical Necessity Reason Pt with a Central, PICC or Fol: No Subjective Review of Systems The patient was seen and examined at the bedside. He is feeling better since admission and has mild chest tenderness. Patient also complaining of burning sensation on the defibrillation pad area. Left side catheterization was performed, and a stent with single drug-eluting stent was put in LAD through right radial artery approach. Patient reports: No new complaints, Feels better Changes from previous H/P or p: No Changes Review of Systems: HEENT:Normal, CVS:Normal, RESPIRATORY:Normal, GI:Normal, :Normal, MSK:Normal, NEURO:Normal Objective vital signs Vital Sign Date Time Temp Pulse Resp B/P (MAP) Pulse Ox O2 Delivery O2 Flow Rate FiO2 09/27/24 13:00 98.0 73 20 126/76 (93) 94 98.0 09/27/24 08:00 Room Air* 0 21 Total Intake and Output 09/26/24 09/26/24 09/27/24 15:00 23:00 07:00 Intake Total 0 ml 300 ml 125 ml Output Total 650 ml 450 ml Balance 0 ml -350 ml -325 ml medications Current Medications Medications Dose Ordered Sig/Lindsay Route Start Time Stop Time Status Last Admin Dose Admin Sodium Chloride 10 ml Q8HR IV 09/24/24 22:00 09/27/24 05:59 10 ML Ondansetron HCl 4 mg Q4HP PRN IV 09/24/24 21:00 Acetaminophen/ Hydrocodone Bitart 1 tab Q4HP PRN PO 09/24/24 21:00 09/27/24 10:46 1 TAB Docusate Sodium 100 mg BIDPRN PRN PO 09/24/24 21:00 Acetaminophen 650 mg Q6HP PRN PO 09/24/24 21:00 09/26/24 19:59 650 MG Nitroglycerin 0.4 mg Q5MINP PRN SL 09/24/24 23:30 Morphine Sulfate 2 mg Q30M PRN IV 09/24/24 23:30 Aspirin 81 mg DAILY PO 09/26/24 10:00 09/27/24 10:48 81 MG Atorvastatin Calcium 80 mg HS PO 09/25/24 22:00 11/4/24 21:31 80 MG Clopidogrel Bisulfate 75 mg DAILY PO 09/26/24 10:00 09/27/24 10:48 75 MG Metoprolol Succinate 25 mg DAILY PO 09/27/24 10:00 09/27/24 10:49 25 MG Enoxaparin Sodium 40 mg DAILY SC 09/28/24 10:00 Empaglifozin 10 mg DAILY PO 09/28/24 10:00 Lisinopril 5 mg DAILY PO 09/28/24 10:00 Examination General Appearance: Alert, Oriented X3, Cooperative, No acute distress HEENT: Atraumatic, PERRLA, EOMI, Mucous membrane moist/pink Respiratory: Clear to auscultation, Normal air movement Cardiovascular: Regular rate, Normal S1, Normal S2, No murmurs, mild chest wall tenderness Abdominal: Normal bowel sounds, Soft, No tenderness, No hepatosplenomegaly, No masses Extremities: LHC site at right wrist: No bleeding/swelling/discharge; No clubbing, No cyanosis, No edema, Normal pulses, No tenderness/swelling Skin: No rashes, No breakdown, No significant lesion laboratory and microbiology Laboratory Tests 09/27/24 12:00 09/27/24 04:34 Test 09/27/24 12:00 Range/Units Serum Glucose 110 H 74-106 mg/dL Microbiology Date/Time Source Procedure Growth Status 09/24/24 21:12 Blood Blood Culture - Preliminary NO GROWTH AFTER 48 HOURS OF INCUBATION. Resulted Labs and/or images reviewed: Labs reviewed by me, Image(s) reviewed by me Problem List/Assessment/Plan Problem List/Assessment/Plan ACS s/p LHC with stenting of proximal LAD Status post cardiac arrest (per technology education instructor ventricular fibrillation), currently normal sinus rhythm after CPR and defibrillation NSTEMI due to ACS Troponin downtrending EKG shows nonspecific ST segment changes with WPW type EKG Cardiology is on the board, Coronary angioplasty performed and a single drug- eluting stent was placed in prox LAD Echocardiogram shows, mildly reduced left ventricular systolic function estimated ejection fraction 45-50%. In a global fashion. There is a grade 1 diastolic dysfunction Aspirin 81 mg daily Clopidogrel 75 mg daily Atorvastatin 80 mg daily Continue telemetry Cardiology recommended that given history of the WPW I would recommend also involvement of EP service to see patient: EP Cardiology requested that the patient to be discharged with LifeVest for three months. 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 EP cardiology consulted Pain Management Nurse Telemetry Hypokalemia Magnesium is within normal limits Replaced Transaminitis, likely due ischemia secondary to to cardiac arrest Improving Prediabetes, hyperglycemia Hb A1c is 5.7 Glucose monitoring Morbid obesity with metabolic syndrome Counseled the patient on the importance of adopting healthy lifestyle with diet and exercise in order to lose weight Raised D-dimer Bilateral lower limb Doppler is normal Chest CT shows, suboptimal opacification of the pulmonary artery for the diagnosis of pulmonary embolus. There are however no filling defects seen in the main pulmonary artery or main right or left pulmonary arteries. There is no saddle embolus present. DVT prophylaxis: Lovenox Diet Cardiac diet A new order placed for Pain Management Nurse by Dr. Murcia: Zoll Life Vest Dx: Ventricular fibrillation causing cardiac arrest status post ROSC; ACS s/p LHC with HAKEEM of proximal LAD SAMY: 3 months 66 minutes of critical care time Case discussed with Plan discussed with: Patient, Spouse, Other (RN) My Orders My Orders Orders - MADHU SUAREZ RESDISUSY Procedure Category Date Status Time Enoxaparin Sodium PHA 09/28/24 In Process (Lovenox) 10:00 Pt Request For Service PT 09/26/24 Logged 17:51 Critical Care Time (mins): 66 Addendum Addendum Addendum I was physically present for the vanessa portions of the service provided to patient by THE RESIDENT. I have reviewed the documentation, discussed the case with resident and agree with the resident's documentation except as noted. Also the patient's clinical case was discussed with the patient's nurse. This medical document was created using an electronic medical record system with computerized dictation system. Although this document has been carefully reviewed, there might still be some phonetic and typographical errors. These areas are purely typographical due to imperfections of the software programs, and do not reflect any compromise in the patient's medical care. Late signature. Date of Service: Sep 27, 2024 Billing Provider: ISABELLE MURCIA MD Common Visit Codes: [id number] CARE 30-74 MIN (66 minutes) MADHU SUAREZ [facility] Sep 27, 2024 16:14 ISABELLE MURCIA MD Sep 28, 2024 05:21
[2024-09-27 20:11] LABS: Alanine Aminotransferase 146 U/L (7-40); Aspartate Aminotransferase 62 U/L (13-40)
[2024-09-28] VITALS (7 sets, daily range): BP systolic 113–143; BP diastolic 66–93; PULSE 62–77; RESP 16–20; TEMP 97.6–98.3; O2SAT 94–97
[2024-09-28] MEDS: EMPAGLIFLOZIN 10 MG TAB PO SCH (09:40)
[2024-09-28] MEDS: ENOXAPARIN SOD 40 MG/0.4 ML SYRINGE SC SCH (09:41)
[2024-09-28] MEDS: LISINOPRIL 5 MG TAB PO SCH (09:41)
--- NOTE | 2024-09-28 15:37 | DVHDSRES ---
Discharge Summary Date of Admission Resident Creating Document: TIFFANY BELLO Sep 24, 2024 at 23:19 Date of Discharge: Sep 28, [address]-elevation myocardial infarction Labs/Diagnostic Data: Laboratory Results Test 09/27/24 19:26 09/27/24 12:00 09/27/24 04:34 09/26/24 20:54 Aspartate Amino Transferase (AST) 62 U/L (13-40) Alanine Aminotransferase (ALT) 146 U/L (7-40) Troponin I High Sensitivity 79 ng/L (</=54) Sodium Level 137 mmol/L (136-145) Potassium Level 4.0 mmol/L (3.5-5.1) Chloride Level 106 mmol/L (98-107) Carbon Dioxide Level 25 mmol/L (20-31) Anion Gap 6 (5-15) Blood Urea Nitrogen 15 mg/dL (9-23) Creatinine 0.94 mg/dL (0.700-1.30) Glomerular Filtration Rate Calc 95 mL/min (>90) BUN/Creatinine Ratio 16.0 (10.0-20.0) Serum Glucose 110 mg/dL (74-106) Calcium Level 9.8 mg/dL (8.7-10.4) Triglycerides Level 143 mg/dL (< 150) Cholesterol Level 200 mg/dL (< 200) LDL Cholesterol 135 mg/dL (< 100) HDL Cholesterol 40 mg/dL (40-59) White Blood Count 5.7 10^3/uL (4.4-10.8) Red Blood Count 4.98 10^6/uL (4.5-5.90) Hemoglobin 14.0 g/dL (13.5-17.5) Hematocrit 42.0 % (41.0-53.0) Mean Corpuscular Volume 84.4 fL (80.0-100.0) Mean Corpuscular Hemoglobin 28.2 pg (28.0-32.0) Mean Corpuscular Hemoglobin Concent 33.4 g/dL (32.0-36.0) Red Cell Distribution Width 14.9 % (11.8-14.3) Platelet Count 176 10^3/uL (140-450) Mean Platelet Volume 8.5 fL (6.9-10.8) Neutrophils (%) (Auto) 67.3 % (37.0-80.0) Lymphocytes (%) (Auto) 23.0 % (10.0-50.0) Monocytes (%) (Auto) 7.3 % (0.0-12.0) Eosinophils (%) (Auto) 1.9 % (0.0-7.0) Basophils (%) (Auto) 0.5 % (0.0-2.0) Neutrophils # (Auto) 3.9 10 ^3/uL (1.6-8.6) Lymphocytes # (Auto) 1.3 10 ^3/uL (0.4-5.4) Monocytes # (Auto) 0.4 10 ^3/uL (0-1.3) Eosinophils # (Auto) 0.1 10 ^3/uL (0-0.8) Basophils # (Auto) 0 10 ^3/uL (0-0.2) Nucleated Red Blood Cells 0.0 % Total Bilirubin 0.8 mg/dL (0.2-1.0) Alkaline Phosphatase 65 U/L (46-116) Total Protein 6.1 g/dL (5.7-8.2) Albumin 3.8 g/dL (3.2-4.8) Influenza Type A Antigen Negative (Negative) Influenza Type B Antigen Negative (Negative) SARS-CoV-2 Antigen (Rapid) Negative (NEGATIVE) Test 09/26/24 06:30 09/26/24 04:20 09/25/24 03:30 09/24/24 21:12 Urine Color Yellow (Yellow) Urine Clarity Clear (Clear) Urine pH 5.5 (5.0-9.0) Urine Specific [place] 1.034 (1.001-1.035) Urine Protein 1+ (Negative) Urine Ketones Trace (Negative) Urine Blood Negative /uL (Negative) Urine Nitrite Negative (Negative) Urine Bilirubin Negative (Negative) Urine Urobilinogen Normal mg/dL (Negative) Urine Leukocyte Esterase Negative /uL (Negative) Urine RBC 1 /hpf (0 - 3) Urine WBC 1 /hpf (0 - 3) Urine Squamous Epithelial Cells Few /hpf (<5) Urine Bacteria Few /hpf (None Seen) Urine Mucus Few (None Seen) Urine Yeast (Budding) Occasional /hpf (None Urine Glucose Trace mg/dL (Normal) Urine Opiates Screen Neg (NEGATIVE) Urine Fentanyl Screen Neg (NEGATIVE) Urine Barbiturates Screen Neg (NEGATIVE) Urine Phencyclidine Screen Neg (NEGATIVE) Urine Amphetamines Screen Neg (NEGATIVE) Urine Benzodiazepines Screen Neg (NEGATIVE) Urine Cocaine Screen Neg (NEGATIVE) Urine Cannabinoids Screen Neg (NEGATIVE) Prothrombin Time 11.2 sec (9.3-11.8) Prothrombin Time INR 1.06 (0.9-1.15) Activated Partial Thromboplast Time 36.5 SEC (24.5-34.5) Magnesium Level 2.1 mg/dL (1.6-2.6) D-Dimer, Quantitative 7.25 mg/L FEU (0.0-0.49) Lactic Acid Level 1.5 mmol/L (0.4-2.0) Test 09/24/24 18:05 Hemoglobin A1c 5.7 % A1C (<5.7) B-Type Natriuretic Peptide 42.46 pg/mL (0-100) Other Laboratory Tests 09/27/24 12:00 09/27/24 04:34 Brief Hx & Hospital Course: The patient is a 54-year-old morbidly obese male with a past medical history of Ctyqi-Wnvwovmtv-Ktwwm syndrome who presented to [facility] ED for evaluation of cardiac arrest. The patient was sitting at a picnic table when he dropped to the ground. Three cycles of CPR were performed by a family member until paramedics arrived. When paramedics arrived on the scene, he was in ventricular fibrillation, for which he was shocked and received continuous CPR for a few minutes along with one dose of epinephrine. The patient returned to sinus rhythm and was answering questions prior to coming to the ED. At the ED, the patient was complaining of mild chest pain. He denied shortness of breath, palpitations, fever, headache, or any other symptoms. Past Medical History: Imrzs-Bxqryoqbn-Jzngd type EKG (on no medication), morbidly obese Past Surgical History: Noncontributory Family History: Significant for heart disease Social History: Lives with family, denies smoking, drinks occasionally, denies any other drug use Home Medications: Baby aspirin and ibuprofen occasionally for body pain Allergic History: Noncontributory On physical examination in the ED, the patient had mild chest tenderness; otherwise, the examination was within normal limits. Lab studies were significant for trop I raised 688, creatinine at 0.9, potassium at 3.4, creatinine at 1.20, AST at 206, ALT at 302, D-dimer at 7.25, and HbA1c at 5.7. Bilateral lower Doppler and head CT scan were within normal limits. A CT of the chest-abdominopelvic area showed suboptimal opacification of the pulmonary artery for the diagnosis of pulmonary embolus. However, no filling defects were seen in the main pulmonary artery or main right or left pulmonary arteries, and there was no saddle embolus present. During hospital admission the patient was put on ACS (NSTEMI) protocol (dual antiplatelet, atorvastatin, metoprolol and lisinopril), cardiology consulted and performed left heart catheterization, put stent at proximal LAD. Due to status post cardiac arrest and we will Parkinson White EKG vehicle glass technician was also consulted and recommended LifeVest for 3 months. Electrolyte imbalance including hypokalemia was supplemented. On 09/28, the patient was clinically, widely and hemodynamically was stable. Patient had no symptoms. Discharge plan was discussed with the patient and the patient was discharged with aspirin 81 mg, clopidogrel 75 mg, atorvastatin 80 mg, metoprolol 25 mg, lisinopril 5 mg, and Jardiance 10 mg. The patient was recommended to follow up with the PCP within 1 week of discharge and Cardiology on outpatient basis. Physical examination during discharge: General Appearance: Alert, Oriented X3, Cooperative, No acute distress HEENT: Atraumatic, PERRLA, EOMI, Mucous membrane moist/pink Respiratory: Clear to auscultation, Normal air movement Cardiovascular: Regular rate, Normal S1, Normal S2, No murmurs, no chest wall tenderness Abdominal: Normal bowel sounds, Soft, No tenderness, No hepatospenomegaly, No masses Extremities: No clubbing, No cyanosis, No edema, Normal pulses, No tenderness/swelling Skin: No rashes, No breakdown, No significant lesion Neuro: Normal gait, Normal speech, Strength at 5/5 X4 ext, Normal tone, Sensation intact, Cranial nerves 3-12 NL, Reflexes 2+ Psych/Mental Status: Mental status NL, Mood NL Consults/Reason for consult Cardiology: Non ST-elevation [place] Operations or Procedures [address] [address] Ph: [phone] DIAGNOSTIC IMAGING Diagnostic Imaging Report : [id number] Signed PATIENT: REJI GIBSONACCT: [id number] UNIT: [id number] : 1970 LOC: [facility] ROOM / BED: 0270T / B AGE / SEX: 54 / M ADM STATUS: ADM IN SERVICE 47 ORDERING PHYSICIAN: DEBORAH CABRAL DNP PROCEDURE(s): ECIDC - ECHO 2D MODE CARDIAC DOP REASON: Cardiac arrest ORDER NUMBER(s): [id number], ACCESSION NUMBER(s): [id number] APPROVED REPORT EXAM: LIMITED Two-dimensional and M-mode echocardiogram with Doppler and color Doppler. Blood Pressure: 139/87 mmHg INDICATION Cardiac Arrest RISK FACTORS Obesity: Height: 6' 1", Weight: 280 DIMENSIONS LVDd 4.8 (3.8-5.7cm) LA (2D) 3.7 (1.9-4.0cm) Aortic Root 3.6 (2.0- 3.7cm) LVDs 3.5 (2.5-4.0cm) LA (MM) (1.9-4.0cm) Aortic Cusp Exc 2.1 (1.5- 2.0cm) EF (%) 50.0 (55-70%) Rt. Atrium 4.2 (1.9-4.0cm) Asc. Aorta cm IVSd 1.2 (0.7-1.1cm) RV (D) (1.8-2.4cm) PWd 1.2 (0.7-1.1cm) Mitral Valve Mitral Mitral Stenosis E wave 0.80m/s MV Mean GR. mmHg A wave 0.70m/s MV Peak GR. mmHg E/A ratio 1.1 2D MVA cm2 Aortic Valve Aortic Valve Aortic Stenosis V1 0.90m/s AO Mean GR. 4mmHg V2 1.30m/s AO Peak GR. 7mmHg LVOT Diameter 2.5 (1.8-2.4cm) Doppler JAYE 3.40cm2 Other Information Quality : Technically Limited Rhythm : Technically limited study due to body habitus. Conclusion Mildly reduced left ventricular systolic function estimated ejection fraction 45-50%. In a global fashion. There is a grade 1 diastolic dysfunction. Normal right ventricular size and dimension. Normal right ventricular systolic function. Normal biatrial size and dimension. Normal aortic valve structure and function. Normal mitral valve structure and function. Normal tricuspid valve structure and function. The pulmonary valve is grossly normal. No pericardial effusion. SIGNED BY: NADER BURNS MD SIGNED DATE/TIME: 09/25/24 1355 CC: [facility] Operative Report - Cardiology Patient Name: Reji Gibson Unit Number: [id number] Date of : 1970 Patient Status: Admitted Inpatient Attending Doctor: Tiffany Bello Resdient Operative Report - Cardiology Operative Report -Cardiology Report Details Date: 09/26/24 Preop Diagnosis: Status post cardiac arrest with a non ST-elevation myocardial infarction Postop Diagnosis: Coronary angiography revealed critical candy wrapper lesion in the proximal mid LAD for which it was stented using single drug-eluting stent. This was interrogated using intravascular ultrasound which shows well-opposed stents post implantation. Surgeon: Nader Burns MD Anesthesiologist: Conscious sedation using25 mcg of fentanyl as well as a mg IV midazolam. Anesthesia: Local Consent: The patient was informed of the risks and benefits of the procedure. These include but are not limited to complications of anesthesia, postoperative infection, incomplete relief of symptoms, recurrence of symptoms, damage to blood vessels, nerves and tendons, deep venous thrombosis, pulmonary embolism and possible need for repeat surgery in the future. Indications for Surgery: 54-year-old male with PMH for Yxgrr-Nuozxwdzv-Epdtr syndrome, presents to the hospital s/p cardiac arrest. Patient and are from [place] and was visiting up at [facility] for patient states he had 1 beer and had gotten up to go use the restroom when patient suddenly became unresponsive and was helped by local firefighters noting patient was agonal breathing and therefore CPR was initiated. Patient underwent 2 rounds of CPR with 1 shock delivered for ventricular fibrillation, possible 1 round of epi per . Rosc was achieved and patient was becoming more responsive and answering questions. Patient was planned to be transported via air to [facility] or [place] though due to weather was unable to fly therefore patient was then transported here to ER. Of note patient has been walking daily with and had just done a hike earlier that day, apple watch results noted heart rate reached roughly 130 beats per minute during exertion with rest of day showing mean heart rate between 60-70 beats per minute on mobile device heart rate monitoring system. Patient denies any remembered palpitations, lightheadedness, chest pains prior to passing out. Upon evaluation patient vital signs were stable, patient is breathing stable on 2 L NC. Patient does complain of chest pain, anterior thoracic area, s/p compressions, increases with deep breathing. Patient also noted have elevated troponin trending 327, 442, 646, 688, 489. LFTs elevated with AST 206 and ALT 302.EKG reviewed and shows sinus rhythm at 78 beats per minute, no significant ST abnormality noted, no delta wave noted. QTC prolongation at 511 ms. Name of Procedure Performed 1. Left heart catheterization with left ventricular end-diastolic pressure measurement. 2. selective right and left coronary angiography utilizing right transradial approach. 3. Coronary angioplasty to the prox LAD using single drug-eluting stent. 4. Intravascular ultrasound interrogation post LAD stenting to ensure well- opposed stent to the wall of the LAD vessel. 5. Conscious sedation using25 mcg of fentanyl as well as a mg IV midazolam. Procedure Details Procedure Details: Procedure note. After informed consent was obtained risks, benefits, complications, alternatives were discussed in details with the patient who agrees to have the procedure done. At the beginning of the procedure the right wrist and the right coronary artery were prepped and draped in regular sterile fashion. Patient received conscious sedation with25 mcg of fentanyl as well as a mg of midazolam. Then, a 2% xylocaine was given to the right wrist area before a six Cook Islander sheath was placed without difficulty using modified Seldinger technique. A cocktail of 2.5 mg of verapamil as well as 100 mcg of nitroglycerin were given intra arterial to prevent vasospasm findings were as follows: 1. Left heart catheterization with left ventricular end-diastolic pressure measurement: With the help of a tiger five Cook Islander catheter as well as a J-tip we were able to cross the aortic valve and measured left ventricular end-diastolic pressure which was elevated at 16 mm of mercury. There was no gradient across the aortic valve on the pullback. 2. Selective right and left coronary angiography utilizing right transradial approach: 1. Right coronary artery comes off the right coronary cusp it is a large dominant artery, it bifurcates distally into large posterior descending artery as well as large posterolateral branch. There was no significant atherosclerotic plaquing noted in the right coronary artery. 2. 2. Left main comes off left coronary cusp, it is a large and has no significant atherosclerotic plaquing. Bifurcates distally into a large left anterior descending artery as well as a large left circumflex system 3. Left anterior descending artery has a candy wrapper lesion of the proximal to mid segment there were two lesion at 90% of the proximal and mid part of the LAD before the takeoff of the 2nd diagonal branch. This is likely the culprit of the patient's cardiac arrest 3. Left circumflex artery comes off the left main it has no significant atherosclerotic disease. However, the 1st obtuse marginal branch has high takeoff and has moderate disease of 60-70%. 3. Angioplasty to proximal mid tandem lesion of the LAD using single drug- eluting stent and intravascular ultrasound interrogation for stent optimization: The tiger five [place] Islander catheter was exchanged for an XB 3.5 guiding catheter, 0.014 mm Zack blue wire was used to engage the left anterior descending artery. Lesion was then pre-dilated using 2.5 x 20 balloon and then was stented using 3.5 x 30 marci George drug-eluting stent. Up to four atmospheric pressure. Intravascular ultrasound interrogation was done post implantation indicating under deployed stent, the stent was then post dilated furthermore using four 0 x 20 balloon up to 16 atmospheric pressure a 2nd round of intravascular ultrasound shows well-opposed stent to the wall of the vessel. Obvious complication. Excellent result was obtained. Anticoagulation antiplatelet therapy during the procedure: Patient received Angiomax continuous intravenous infusion, in addition to loading Plavix of 600 mg dose in addition to aspirin at 162 mg dose. Impression and plan: 1. Successful primary PCI to prox mid tandem candy wrapper lesion to the LAD using single drug-eluting stent. 2. Patient would need to be on dual antiplatelet therapy for long term care administrator. 3. Patient would need aggressive medical therapy including high-dose statin to achieve LDL target of less than 50 mg/dL. 4. 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 5. Patient would need an echocardiogram to assess left ventricular systolic function and proceed with goal-directed therapy as indicated. Condition Good [facility] Clinical Frailty Scale [facility] Clinical Frailty Scale: Moderately Frail Stress Test Stress Test Performed: No Dominance Dominance: Right FAYE FAYE Flow: Post- Intervention (FAYE-3), Pre-Intervention (FAYE-2) Lesion Lesion Complexity: High/C Disposition 2 NADER BURNS MD Sep 26, 2024 13:25 Condition at Discharge: Good Final Diagnosis/Problems List ACS s/p C with stenting of proximal LAD Status post cardiac arrest (ventricular fibrillation). s/p cardiopulmonary resuscitation NSTEMI Acute on chronic HFmrEF, NYHA class III Zzqqx-Hksuhdhqy-Awoxu syndrome Hypokalemia Transaminitis, likely due ischemia secondary to to cardiac arrest Prediabetes, hyperglycemia Morbid obesity with metabolic syndrome Discharge Disposition: Home Discharge Instruct/Medications Diet: Cardiac 2g Na,low cholest Activity: Light activity Activity comment: May resume normal life activity within 1-2 weeks if the patient could tolerate. Follow Up/Referral: Follow up with the PCP within 1 week after discharge. Follow up with the Cardiology and electrophysiology on outpatient basis. Medications: Aspirin 81 mg daily Clopidogrel 75 mg daily Atorvastatin 80 mg daily Lisinopril 5 mg daily Metoprolol 25 mg daily Jardiance 10 mg daily Nitroglycerin sublingual, prn Discharge Statement: "Patient was advised to return to the ER or call 911 if any headaches, dizziness, shortness of breath, chest pain, abdominal pain, bleeding, fevers, or worsening of medical condition. Patient was counseled about treatment plan, medications, possible side effects, patientverbalized understanding. All questions were answered to the best of my ability. This discharge took greater then 30 minutes in planning, reviewing documentation, counseling the patient, and discussing with other team members." ASSESSMENT ASSESSMENT Assessment NSTEMI, status post PCI to the LAD TIFFANY BELLO Sep 28, 2024 15:37 ARI DAVALOS MD Sep 28, 2024 21:14
[2024-09-29] VITALS (8 sets, daily range): BP systolic 115–134; BP diastolic 51–81; PULSE 64–75; RESP 17–21; TEMP 98–98.5; O2SAT 93–98
--- NOTE | 2024-09-29 20:52 | DVHPNRES ---
Progress Note Date Seen: Sep 29, 2024 Resident Creating Document: MADHU SUAREZ BETSY Has the PT tested + for MRSA If YES, has PT been informed?: No Medical Necessity Reason Pt with a Central, PICC or Fol: No Subjective Review of Systems Patient is seen and examined at the bedside. The patient is feeling better and has no symptoms. Patient is performing physiotherapy 3 times sodium with the stool symptoms. Patient is still waiting for the LifeVest authorization. Patient reports: No new complaints, Feels better Changes from previous H/P or p: No Changes Objective vital signs Vital Sign Date Time Temp Pulse Resp B/P (MAP) Pulse Ox O2 Delivery O2 Flow Rate FiO2 09/29/24 17:00 98.3 65 18 116/74 (88) 98 98.3 09/29/24 08:00 Room Air* 0 21 Total Intake and Output 09/28/24 09/28/24 09/29/24 15:00 23:00 07:00 Intake Total 600 ml 660 ml Output Total 600 ml 350 ml Balance 0 ml 310 ml medications Current Medications Medications Dose Ordered Sig/Lindsay Route Start Time Stop Time Status Last Admin Dose Admin Sodium Chloride 10 ml Q8HR IV 09/24/24 22:00 09/29/24 13:19 10 ML Ondansetron HCl 4 mg Q4HP PRN IV 09/24/24 21:00 Acetaminophen/ Hydrocodone Bitart 1 tab Q4HP PRN PO 09/24/24 21:00 09/27/24 10:46 1 TAB Docusate Sodium 100 mg BIDPRN PRN PO 09/24/24 21:00 Acetaminophen 650 mg Q6HP PRN PO 09/24/24 21:00 09/26/24 19:59 650 MG Nitroglycerin 0.4 mg Q5MINP PRN SL 09/24/24 23:30 Morphine Sulfate 2 mg Q30M PRN IV 09/24/24 23:30 Aspirin 81 mg DAILY PO 09/26/24 10:00 09/29/24 10:28 81 MG Atorvastatin Calcium 80 mg HS PO 09/25/24 22:00 09/28/24 21:26 80 MG Clopidogrel Bisulfate 75 mg DAILY PO 09/26/24 10:00 09/29/24 10:26 75 MG Metoprolol Succinate 25 mg DAILY PO 09/27/24 10:00 09/29/24 10:28 25 MG Enoxaparin Sodium 40 mg DAILY SC 09/28/24 10:00 09/29/24 10:28 40 MG Empaglifozin 10 mg DAILY PO 09/28/24 10:00 09/29/24 10:26 10 MG Lisinopril 5 mg DAILY PO 09/28/24 10:00 09/29/24 10:27 5 MG Examination: GENERAL:Normal, HEENT:Normal, NECK:Normal, LUNGS:Normal, CVS:Normal, ABDOMEN:Normal, MSK:Normal, SKIN:Normal, NEURO:Normal, :Normal laboratory and microbiology Laboratory Tests 09/27/24 12:00 09/27/24 04:34 Test 09/27/24 12:00 Range/Units Serum Glucose 110 H 74-106 mg/dL Microbiology Date/Time Source Procedure Growth Status 09/24/24 21:12 Blood Blood Culture - Preliminary NO GROWTH AFTER 72 HOURS OF INCUBATION. Resulted Labs and/or images reviewed: Labs reviewed by me, Image(s) reviewed by me Problem List/Assessment/Plan Problem List/Assessment/Plan Status post cardiac arrest (per senior corporate strategy manager ventricular fibrillation), currently normal sinus rhythm after CPR and defibrillation NSTEMI Troponin downtrending EKG shows nonspecific ST segment changes with WPW type EKG Cardiology is on the board, Coronary angioplasty performed and a single drug- eluting stent was put on prox LAD Echocardiogram shows, mildly reduced left ventricular systolic function estimated ejection fraction 45-50%. In a global fashion. 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 Per patient, has history of tachycardia at rate of 300, 30 years back, no record available EKG shows delta wave with shortening of MT interval and relatively wide QRS complex Avoid AV bryan jony agents EP on the board recommended to use LifeVest for 3 months Hypokalemia Magnesium is within normal limits Supplemented Transaminitis, likely due ischemia secondary to to cardiac arrest Improving Prediabetes, hyperglycemia Hb A1c is 5.7 Glucose monitoring Raised D-dimer Bilateral lower limb Doppler is normal Chest CT shows, suboptimal opacification of the pulmonary artery for the diagnosis of pulmonary embolus. There are however no filling defects seen in the main pulmonary artery or main right or left pulmonary arteries. There is no saddle embolus present. DVT prophylaxisLovenox Diet Cardiac diet SCD Code status Full Code Patient has been discharge, as per coffee urn attendant recommendation the patient needed life vest for 3 months, still waiting for the insurance company authorization. Case discussed with Plan discussed with: Patient, Spouse, Other (RN) Dietary Evaluation Review Comments: Continue current plan of care Expected Outcomes/Goals: F/U in 3-5 days MADHU SUAREZ RESDIENT Sep 29, 2024 20:52
[2024-09-30] VITALS (8 sets, daily range): BP systolic 106–135; BP diastolic 62–98; PULSE 60–74; RESP 17–18; TEMP 97.6–98.4; O2SAT 9–98
--- NOTE | 2024-09-30 15:55 | DVHPNRES ---
Progress Note Date Seen: Sep 30, 2024 Resident Creating Document: MADHU SUAREZ BETSY Has the PT tested + for MRSA If YES, has PT been informed?: No Medical Necessity Reason Pt with a Central, PICC or Fol: No Subjective Patient reports: No new complaints Changes from previous H/P or p: No Changes Objective vital signs Vital Sign Date Time Temp Pulse Resp B/P (MAP) Pulse Ox O2 Delivery O2 Flow Rate FiO2 09/30/24 13:00 97.7 68 18 118/79 (92) 97 97.7 09/30/24 08:00 Room Air* 0 21 Total Intake and Output 09/29/24 09/29/24 09/30/24 15:00 23:00 07:00 Intake Total 800 ml 400 ml Balance 800 ml 400 ml medications Current Medications Medications Dose Ordered Sig/Lindsay Route Start Time Stop Time Status Last Admin Dose Admin Sodium Chloride 10 ml Q8HR IV 09/24/24 22:00 09/30/24 13:56 10 ML Ondansetron HCl 4 mg Q4HP PRN IV 09/24/24 21:00 Acetaminophen/ Hydrocodone Bitart 1 tab Q4HP PRN PO 09/24/24 21:00 09/27/24 10:46 1 TAB Docusate Sodium 100 mg BIDPRN PRN PO 09/24/24 21:00 Acetaminophen 650 mg Q6HP PRN PO 09/24/24 21:00 09/26/24 19:59 650 MG Nitroglycerin 0.4 mg Q5MINP PRN SL 09/24/24 23:30 Morphine Sulfate 2 mg Q30M PRN IV 09/24/24 23:30 Aspirin 81 mg DAILY PO 09/26/24 10:00 09/30/24 08:24 81 MG Atorvastatin Calcium 80 mg HS PO 09/25/24 22:00 09/29/24 22:10 80 MG Clopidogrel Bisulfate 75 mg DAILY PO 09/26/24 10:00 09/30/24 08:25 75 MG Metoprolol Succinate 25 mg DAILY PO 09/27/24 10:00 09/30/24 08:25 25 MG Enoxaparin Sodium 40 mg DAILY SC 09/28/24 10:00 09/30/24 08:26 40 MG Empaglifozin 10 mg DAILY PO 09/28/24 10:00 09/30/24 08:24 10 MG Lisinopril 5 mg DAILY PO 09/28/24 10:00 09/30/24 08:25 5 MG Examination: GENERAL:Normal, HEENT:Normal, NECK:Normal, LUNGS:Normal, CVS:Normal, ABDOMEN:Normal, MSK:Normal, SKIN:Normal, NEURO:Normal, :Normal laboratory and microbiology Laboratory Tests 09/27/24 12:00 09/27/24 04:34 Test 09/27/24 12:00 Range/Units Serum Glucose 110 H 74-106 mg/dL Microbiology Date/Time Source Procedure Growth Status 09/24/24 21:12 Blood Blood Culture - Final NO GROWTH AFTER 5 DAYS OF INCUBATION. 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 In a global fashion. 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 Per patient, has history of tachycardia at rate of 300, 30 years back, no record available EKG shows delta wave with shortening of [place] interval and relatively wide QRS complex Avoid AV bryan jony agents EP on the board, recommended to use LifeVest for 3 months after discharge Hypokalemia Magnesium is within normal limits Supplemented Transaminitis, likely due ischemia secondary to to cardiac arrest Improved Prediabetes, hyperglycemia Hb A1c is 5.7 Glucose monitoring Raised D-dimer Bilateral lower limb Doppler is normal Chest CT shows, suboptimal opacification of the pulmonary artery for the diagnosis of pulmonary embolus. There are however no filling defects seen in the main pulmonary artery or main right or left pulmonary arteries. There is no saddle embolus present. DVT prophylaxisLovenox Diet Cardiac diet SCD Code status Full Code Patient seen and examined at bedside. Patient did not have any complaint. Capsule Maker has been consulted and recommended that, considering the patients status post cardiac arrest (due to ventricular fibrillation which was reverted to normal with defibrillation) and STEMI with a stent placed in the LAD, a LifeVest is recommended for 3 months due to the high risk of future arrhythmias. The request has already been sent to the insurance company. After a couple of days, the insurance company denied providing the LifeVest. Multiple attempts have been made to contact the insurance company to explain the patients condition and the life-threatening risk of discharging the patient without a LifeVest. Despite leaving a voicemail to explain the situation, there has been no response. The patient and his family was updated and explained the condition. While the patient is in hospital, we will continue monitoring the patient. Case discussed with Plan discussed with: Patient, Spouse, Other (RN) Dietary Evaluation Review Comments: Continue current plan of care Expected Outcomes/Goals: F/U in 3-5 days MADHU SUAREZ RESDISUSY Sep 30, 2024 15:55
[2024-10-01] VITALS (8 sets, daily range): BP systolic 109–132; BP diastolic 58–83; PULSE 66–74; RESP 17–18; TEMP 98.5–99.2; O2SAT 93–98
--- NOTE | 2024-10-01 14:32 | DVHPNRES ---
Progress Note Date Seen: Oct 01, 2024 Resident Creating Document: MADHU SUAREZ BETSY Has the PT tested + for MRSA If YES, has PT been informed?: No Medical Necessity Reason Pt with a Central, PICC or Fol: No Subjective Review of Systems Patient seen and examined at the bedside. Patient is feeling well and and complained of mildly pruritic rash in the armpit and groin area. Patient reports: No new complaints Changes from previous H/P or p: No Changes Objective vital signs Vital Sign Date Time Temp Pulse Resp B/P (MAP) Pulse Ox O2 Delivery O2 Flow Rate FiO2 10/01/24 10:38 70 109/65 10/01/24 09:44 98.6 18 96 98.6 10/01/24 08:00 Room Air* 0 21 Total Intake and Output 09/30/24 09/30/24 10/01/24 15:00 23:00 07:00 Intake Total 800 ml 500 ml Balance 800 ml 500 ml medications Current Medications Medications Dose Ordered Sig/Lindsay Route Start Time Stop Time Status Last Admin Dose Admin Sodium Chloride 10 ml Q8HR IV 09/24/24 22:00 10/01/24 14:28 10 ML Ondansetron HCl 4 mg Q4HP PRN IV 09/24/24 21:00 Acetaminophen/ Hydrocodone Bitart 1 tab Q4HP PRN PO 09/24/24 21:00 09/27/24 10:46 1 TAB Docusate Sodium 100 mg BIDPRN PRN PO 09/24/24 21:00 Acetaminophen 650 mg Q6HP PRN PO 09/24/24 21:00 09/26/24 19:59 650 MG Nitroglycerin 0.4 mg Q5MINP PRN SL 09/24/24 23:30 Morphine Sulfate 2 mg Q30M PRN IV 09/24/24 23:30 Aspirin 81 mg DAILY PO 09/26/24 10:00 10/01/24 10:38 81 MG Atorvastatin Calcium 80 mg HS PO 09/25/24 22:00 09/30/24 21:01 80 MG Clopidogrel Bisulfate 75 mg DAILY PO 09/26/24 10:00 10/01/24 10:37 75 MG Metoprolol Succinate 25 mg DAILY PO 09/27/24 10:00 10/01/24 10:38 25 MG Enoxaparin Sodium 40 mg DAILY SC 09/28/24 10:00 10/01/24 10:38 40 MG Empaglifozin 10 mg DAILY PO 09/28/24 10:00 10/01/24 10:37 10 MG Lisinopril 5 mg DAILY PO 09/28/24 10:00 09/30/24 08:25 5 MG Hydrocortisone 1 applic BID TOP 10/01/24 22:00 Examination: GENERAL:Normal, HEENT:Normal, NECK:Normal, LUNGS:Normal, CVS:Normal, ABDOMEN:Normal, MSK:Normal, SKIN:Normal, NEURO:Normal, :Normal laboratory and microbiology Laboratory Tests 09/27/24 12:00 09/27/24 04:34 Test 09/27/24 12:00 Range/Units Serum Glucose 110 H 74-106 mg/dL Microbiology Date/Time Source Procedure Growth Status 09/24/24 21:12 Blood Blood Culture - Final NO GROWTH AFTER 5 DAYS OF INCUBATION. 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 In a global fashion. 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 Per patient, has history of tachycardia at rate of 300, 30 years back, no record available EKG shows delta wave with shortening of [place] interval and relatively wide QRS complex Avoid AV bryan jony agents EP on the board, recommended to use LifeVest for 3 months after discharge Hypokalemia Magnesium is within normal limits Supplemented Transaminitis, likely due ischemia secondary to to cardiac arrest Improved Prediabetes, hyperglycemia Hb A1c is 5.7 Glucose monitoring Rashes Patient has mildly pruritic red rashes in the armpit and groin area Ointment hydrocortisone, topical Raised D-dimer Bilateral lower limb Doppler is normal Chest CT shows, suboptimal opacification of the pulmonary artery for the diagnosis of pulmonary embolus. There are however no filling defects seen in the main pulmonary artery or main right or left pulmonary arteries. There is no saddle embolus present. DVT prophylaxisLovenox Diet Cardiac diet SCD Code status Full Code Patient seen and examined at bedside. Patient did not have any complaint. Ceramic Tiler has been consulted and recommended that, considering the patients status post cardiac arrest (due to ventricular fibrillation which was reverted to normal with defibrillation) and STEMI with a stent placed in the LAD, a LifeVest is recommended for 3 months due to the high risk of future arrhythmias. The request has already been sent to the insurance company. After a couple of days, the insurance company denied providing the LifeVest. Multiple attempts have been made to contact the insurance company to explain the patients condition and the life-threatening risk of discharging the patient without a LifeVest. Despite leaving a voicemail to explain the situation, there has been no response. The patient and his family was updated and explained the condition. While the patient is in hospital, we will continue monitoring the patient. Case discussed with Dr. Rashid Plan discussed with: Patient, Spouse, Other (RN) My Orders My Orders Orders - MADHU SUAREZ RESDISUSY Procedure Category Date Status Time Electrocardigram EKG 10/01/24 Logged 11:47 Hydrocortone 1% PHA 10/01/24 In Process Topical Cream 22:00 Dietary Evaluation Review Comments: Continue current plan of care Expected Outcomes/Goals: F/U in 3-5 days Date of Service: Oct 01, 2024 Billing Provider: KIA RASHID MD Common Visit Codes: [id number] INP/OBS CARE(HIGH) MADHU SUAREZ RESDIENT Oct 01, 2024 14:32 KIA RASHID MD Oct 02, 2024 10:28
[2024-10-01] MEDS: HYDROCORTONE 1% TOPICAL CREAM 30 GM TUBE TOP SCH (21:55)
[2024-10-02] VITALS (8 sets, daily range): BP systolic 107–131; BP diastolic 62–82; PULSE 58–71; RESP 16–18; TEMP 97.8–98.4; O2SAT 92–98
[2024-10-02] MEDS: diphenhdrAMINE HCL 50 MG/1 ML VL IV PRN (09:49)
[2024-10-02 10:32] LABS: Basophils # (auto) 0 10 ^3/uL (0-0.2); Basophils % (auto) 0.6 % (0.0-2.0); Eosinophils # (auto) 0.1 10 ^3/uL (0-0.8); Eosinophils % (auto) 2.9 % (0.0-7.0); Hematocrit 44.2 % (41.0-53.0); Hemoglobin 15.1 g/dL (13.5-17.5); Lymphocytes # (auto) 1.3 10 ^3/uL (0.4-5.4); Mean Corpuscular Hemoglobin 28.3 pg (28.0-32.0); Mean Corpuscular Hgb Conc. 34.2 g/dL (32.0-36.0); Mean Corpuscular Volume 82.8 fL (80.0-100.0); Monocytes # (auto) 0.6 10 ^3/uL (0-1.3); Neutrophils # (auto) 2.3 10 ^3/uL (1.6-8.6); Neutrophils % (auto) 53.5 % (37.0-80.0); Nucleated Red Blood Cells % 0.1 %; Platelet Count (auto) 215 10^3/uL (140-450); Red Blood Cells 5.34 10^6/uL (4.5-5.90); Red Cell Distribution Width 14.8 % (11.8-14.3); White Blood Cell 4.4 10^3/uL (4.4-10.8)
[2024-10-02 10:44] LABS: Chloride 105 mmol/L (98-107); Potassium 3.9 mmol/L (3.5-5.1); Sodium 137 mmol/L (136-145)
[2024-10-02 10:45] LABS: Anion Gap 5 (5-15); Carbon Dioxide 27 mmol/L (20-31)
[2024-10-02 10:46] LABS: Calcium 9.5 mg/dL (8.7-10.4)
[2024-10-02 10:51] LABS: BUN/Creatinine Ratio 14.2 (10.0-20.0); Blood Urea Nitrogen 16 mg/dL (9-23); Glucose 136 mg/dL (74-106)
[2024-10-02] MEDS: CALAMINE TOPical LOTION180 ML TOP PRN (12:45)
[2024-10-02] MEDS: methylPREDNISolone SOD SUCC 125 MG/2 ML VL IV ONE (16:12)
--- NOTE | 2024-10-02 17:17 | DVHPNRES ---
Progress Note Date Seen: Oct 02, 2024 Resident Creating Document: KIRSTY CAMPO RESIDENT Has the PT tested + for MRSA If YES, has PT been informed?: No Medical Necessity Reason Pt with a Central, PICC or Fol: No Subjective Review of Systems Patient seen and examined at bedside. Patient is mentioning of itching and redness over the back and chest associated with feeling of warmth. He is denying any shortness of breath, diarrhea, nausea, vomiting, palpitations, chest pain and any other symptoms. He is currently on room air. ROS Constitutional: No: Fever, Chills, Sweats, Weakness, Malaise, Other Eyes: No: Pain, Vision change, Conjunctivae inflammation, Eyelid inflammation, Other, Redness ENT: No: Ear pain, Ear discharge, Nose pain, Nose discharge, Nose congestion, Mouth pain, Mouth swelling, Throat pain, Throat swelling, Other Respiratory: No: Cough, Dry, Shortness of breath, SOB with excertion, Wheezing, Hemoptysis, Pleuritic Pain, Sputum, Wheezing, Other Cardiovascular: No: Chest Pain, Palpitations, Orthopnea, Paroxysmal Noc. Dyspnea, Edema, Lt Headedness, Other Gastrointestinal: No: Nausea, Vomiting, Abdominal Pain, Diarrhea, Constipation, Melena, Hematochezia, Other Musculoskeletal: No: other, neck pain, shoulder pain, arm pain, back pain, hand pain, leg pain, foot pain Neurological:; No: Weakness, Numbness, Incoordination, Change in speech, Confusion, Seizures Dermatological: Itching and redness over the back and chest Objective vital signs Vital Sign Date Time Temp Pulse Resp B/P (MAP) Pulse Ox O2 Delivery O2 Flow Rate FiO2 10/02/24 13:00 97.8 66 18 131/82 (98) 98 97.8 10/02/24 08:00 Room Air* 0 21 Total Intake and Output 10/01/24 10/01/24 10/02/24 15:00 23:00 07:00 Intake Total 725 ml 400 ml Output Total 400 ml Balance 325 ml 400 ml medications Current Medications Medications Dose Ordered Sig/Lindsay Route Start Time Stop Time Status Last Admin Dose Admin Sodium Chloride 10 ml Q8HR IV 09/24/24 22:00 10/02/24 16:12 10 ML Ondansetron HCl 4 mg Q4HP PRN IV 09/24/24 21:00 Acetaminophen/ Hydrocodone Bitart 1 tab Q4HP PRN PO 09/24/24 21:00 09/27/24 10:46 1 TAB Docusate Sodium 100 mg BIDPRN PRN PO 09/24/24 21:00 Acetaminophen 650 mg Q6HP PRN PO 09/24/24 21:00 09/26/24 19:59 650 MG Nitroglycerin 0.4 mg Q5MINP PRN SL 09/24/24 23:30 Morphine Sulfate 2 mg Q30M PRN IV 09/24/24 23:30 Aspirin 81 mg DAILY PO 09/26/24 10:00 10/02/24 09:48 81 MG Atorvastatin Calcium 80 mg HS PO 09/25/24 22:00 10/01/24 21:55 80 MG Clopidogrel Bisulfate 75 mg DAILY PO 09/26/24 10:00 10/02/24 09:47 75 MG Metoprolol Succinate 25 mg DAILY PO 09/27/24 10:00 10/02/24 09:48 25 MG Enoxaparin Sodium 40 mg DAILY SC 09/28/24 10:00 10/02/24 09:49 40 MG Empaglifozin 10 mg DAILY PO 09/28/24 10:00 10/02/24 09:54 10 MG Lisinopril 5 mg DAILY PO 09/28/24 10:00 10/02/24 09:48 5 MG Hydrocortisone 1 applic BID TOP 10/01/24 22:00 Diphenhydramine HCl 25 mg Q4HP PRN IV 10/02/24 09:30 10/02/24 09:49 25 MG Calamine 1 applic QIDP PRN TOP 10/02/24 09:30 10/02/24 12:45 1 APPLIC Examination Examination General Appearance: Alert, Oriented X3, Cooperative, No acute distress HEENT: EOMI Respiratory: Clear to auscultation, Normal air movement Cardiovascular: Regular rate, Normal S1, Normal S2 Abdominal: Normal bowel sounds Extremities: No cyanosis, No edema, Normal pulses, No tenderness/swelling Skin: No rashes, No breakdown Neuro: Normal speech and tone Dermatological : Erythema over the back and chest, urticarial like reaction, no blisters laboratory and microbiology Laboratory Tests 10/02/24 10:01 Test 10/02/24 10:01 Range/Units Serum Glucose 136 H 74-106 mg/dL Microbiology Date/Time Source Procedure Growth Status 09/24/24 21:12 Blood Blood Culture - Final NO GROWTH AFTER 5 DAYS OF INCUBATION. Complete Labs and/or images reviewed: Labs reviewed by me, Image(s) reviewed by me Problem List/Assessment/Plan Problem List/Assessment/Plan Assessment/plan # new onset urticarial rash -IV Benadryl PRN -IV methylprednisolone once, we will switch to oral prednisolone for tomorrow -we will review the medication list for potential trigger -patient currently does not have any signs of anaphylaxis including respiratory distress, wheezing, chest pain, palpitation, nausea, vomiting, diarrhea # cardiac arrest status post ROSC (per manager transmission ventricular fibrillation) likely due to ?NSTEMI, ?WPW , currently normal sinus rhythm Continue telemetry As per EP patient will need LifeVest before discharge # ventricular fibrillation, resolved currently normal sinus rhythm likely due to ?NSTEMI, ?WPW -continue telemetry As per EP patient will need LifeVest before discharge # non ST elevation myocardial infarction -Coronary angioplasty performed and a single drug-eluting stent was put on prox LAD Echocardiogram shows, mildly reduced left ventricular systolic function estimated ejection fraction 45-50%. In a global fashion. There is a grade 1 diastolic dysfunction Aspirin 81 mg daily Clopidogrel 75 mg daily Atorvastatin 80 mg daily Continue telemetry # acute heart failure with mildly reduced ejection fraction due to ischemic cardiomyopathy -patient received Lasix IV -currently on GDMT, lisinopril and Jardiance -Echocardiogram shows, mildly reduced left ventricular systolic function estimated ejection fraction 45-50%. In a global fashion. 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 Per patient, has history of tachycardia at rate of 300, 30 years back, no record available EKG shows delta wave with shortening of [place] interval and relatively wide QRS complex Avoid AV bryan jony agents EP on the board, recommended to use LifeVest for 3 months after discharge #Hypokalemia Magnesium is within normal limits Supplemented #Transaminitis, likely due ischemia secondary to to cardiac arrest Improved #Prediabetes, hyperglycemia Hb A1c is 5.7 Glucose monitoring #Elevated D-dimer Bilateral lower limb Doppler is normal Chest CT shows, suboptimal opacification of the pulmonary artery for the diagnosis of pulmonary embolus. There are however no filling defects seen in the main pulmonary artery or main right or left pulmonary arteries. There is no saddle embolus present. #DVT prophylaxis Lovenox SCD #Code status Full Code Code status discussed with the patient for greater than 21 minutes, full code Family at bedside updated about the condition of the patient Drapery Cutter consulted to arrange LifeVest per EP recommendation, awaiting Case discussion with Dr. Diaz Plan discussed with: Patient, Other My Orders My Orders Orders - KIRSTY CAMPO Procedure Category Date Status Time Diphenhdramine PHA 10/02/24 In Process Injection (Benadryl 09:30 Calamine Lotion PHA 10/02/24 In Process 09:30 Dietary Evaluation Review Comments: Continue current plan of care Expected Outcomes/Goals: F/U in 3-5 days Date of Service: Oct 02, 2024 Billing Provider: KIA DIAZ MD Common Visit Codes: [id number] INP/OBS CARE(HIGH) KIRSTY CAMPO Oct 02, 2024 17:17 KIA DIAZ MD Oct 02, 2024 17:21
[2024-10-03] VITALS (9 sets, daily range): BP systolic 101–131; BP diastolic 49–77; PULSE 58–81; RESP 17–20; TEMP 97.6–98.1; O2SAT 95–100
[2024-10-03] MEDS: METOPROLOL SUCCINATE XL 50 MG TAB PO SCH (14:33)
--- NOTE | 2024-10-03 18:48 | DVHPNRES ---
Progress Note Date Seen: Oct 03, 2024 Resident Creating Document: MADHU SUAREZ RESDIENT Has the PT tested + for MRSA If YES, has PT been informed?: No Medical Necessity Reason Pt with a Central, PICC or Fol: No Subjective Review of Systems Patient seen and examined at the bedside. Patient is feeling well and complained of the pruritic red rashes on the axillary, groin, abdominal and back area. Patient reports: Feels better Changes from previous H/P or p: Changes Review of Systems: HEENT:Normal, CVS:Normal, RESPIRATORY:Normal, GI:Normal, :Normal, MSK:Abnormal, NEURO:Normal Objective vital signs Vital Sign Date Time Temp Pulse Resp B/P (MAP) Pulse Ox O2 Delivery O2 Flow Rate FiO2 10/03/24 17:00 97.8 72 17 131/73 (92) 96 97.8 10/03/24 08:08 Room Air* 0 21 Total Intake and Output 10/02/24 10/02/24 10/03/24 14:59 22:59 06:59 Intake Total 1000 ml 340 ml Balance 1000 ml 340 ml medications Current Medications Medications Dose Ordered Sig/Lindsay Route Start Time Stop Time Status Last Admin Dose Admin Sodium Chloride 10 ml Q8HR IV 09/24/24 22:00 10/03/24 14:33 10 ML Ondansetron HCl 4 mg Q4HP PRN IV 09/24/24 21:00 Acetaminophen/ Hydrocodone Bitart 1 tab Q4HP PRN PO 09/24/24 21:00 09/27/24 10:46 1 TAB Docusate Sodium 100 mg BIDPRN PRN PO 09/24/24 21:00 Acetaminophen 650 mg Q6HP PRN PO 09/24/24 21:00 09/26/24 19:59 650 MG Nitroglycerin 0.4 mg Q5MINP PRN SL 09/24/24 23:30 Morphine Sulfate 2 mg Q30M PRN IV 09/24/24 23:30 Aspirin 81 mg DAILY PO 09/26/24 10:00 10/03/24 08:36 81 MG Atorvastatin Calcium 80 mg HS PO 09/25/24 22:00 10/02/24 21:48 80 MG Clopidogrel Bisulfate 75 mg DAILY PO 09/26/24 10:00 10/03/24 08:36 75 MG Enoxaparin Sodium 40 mg DAILY SC 09/28/24 10:00 10/03/24 08:35 40 MG Hydrocortisone 1 applic BID TOP 10/01/24 22:00 10/03/24 18:36 1 APPLIC Diphenhydramine HCl 25 mg Q4HP PRN IV 10/02/24 09:30 10/03/24 18:36 25 MG Calamine 1 applic QIDP PRN TOP 10/02/24 09:30 10/02/24 12:45 1 APPLIC Metoprolol Succinate 12.5 mg DAILY PO 10/03/24 11:00 10/03/24 14:33 12.5 MG Valsartan 80 mg DAILY PO 10/04/24 10:00 Examination General Appearance: Alert, Oriented X3, Cooperative, No acute distress HEENT: Atraumatic, PERRLA, EOMI, Mucous membrane moist/pink Respiratory: Clear to auscultation, Normal air movement Cardiovascular: Regular rate, Normal S1, Normal S2, No murmurs, no chest wall tenderness Abdominal: Normal bowel sounds, Soft, No tenderness, No hepatospenomegaly, No masses Extremities: No clubbing, No cyanosis, No edema, Normal pulses, No tenderness/swelling Skin: Red maculopapular rash on the axillary, groin, chest and back area. Examination: GENERAL:Normal, HEENT:Normal, NECK:Normal, LUNGS:Normal, CVS:Normal, ABDOMEN:Normal, MSK:Normal, SKIN:Normal, NEURO:Normal, :Normal laboratory and microbiology Laboratory Tests 10/02/24 10:01 Test 10/02/24 10:01 Range/Units Serum Glucose 136 H 74-106 mg/dL Microbiology Date/Time Source Procedure Growth Status 09/24/24 21:12 Blood Blood Culture - Final NO GROWTH AFTER 5 DAYS OF INCUBATION. Complete Labs and/or images reviewed: Labs reviewed by me, Image(s) reviewed by me Problem List/Assessment/Plan Problem List/Assessment/Plan Status post cardiac arrest (per bell spinner sousaphones ventricular fibrillation), currently normal sinus rhythm after CPR and defibrillation NSTEMI EKG shows nonspecific ST segment changes with WPW type EKG Cardiology is on the board, Coronary angioplasty performed and a single drug- eluting stent was put on prox LAD Echocardiogram shows, mildly reduced left ventricular systolic function estimated ejection fraction 45-50%. In a global fashion. 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 Per patient, has history of tachycardia at rate of 300, 30 years back, no record available EKG shows delta wave with shortening of HI interval and relatively wide QRS complex Avoid AV bryan jony agents EP on the board, recommended to use LifeVest for 3 months after discharge Hypokalemia Magnesium is within normal limits Supplemented New onset urticarial rash, at axillary, chest, champagne and back area, worsening IV Benadryl PRN Calamin lotion IV methylprednisolone once Doppler Jardiance, and lisinopril has been started, for possible allergic reaction to these medicine Patient currently does not have any signs of anaphylaxis including respiratory distress, wheezing, chest pain, palpitation, nausea, vomiting and diarrhea Transaminitis, likely due ischemia secondary to to cardiac arrest Improved Prediabetes, hyperglycemia Hb A1c is 5.7 Glucose monitoring Rashes Patient has mildly pruritic red rashes in the armpit and groin area Ointment hydrocortisone, topical Raised D-dimer Bilateral lower limb Doppler is normal Chest CT shows, suboptimal opacification of the pulmonary artery for the diagnosis of pulmonary embolus. There are however no filling defects seen in the main pulmonary artery or main right or left pulmonary arteries. There is no saddle embolus present. DVT prophylaxisLovenox Diet Cardiac diet SCD Code status Full Code * [facility] has been consulted and recommended that, considering the patients status post cardiac arrest (due to ventricular fibrillation which was reverted to normal with defibrillation) and STEMI with a stent placed in the LAD and Cinvz-Kohytcpza-Peykz type EKG(which could be a possible cause of cardiac arrest, the patient needs to be followed on outpatient basis to determine the exact cause of cardiac arrest, at the moment there is no way to determine if WPW type EKG was the possible cause of cardiac arrest and if patient do not need LifeVest), a LifeVest is recommended for 3 months due to the high risk of future arrhythmias. * The request has already been sent to the insurance company. After a couple of days, the insurance company denied providing the LifeVest. Multiple attempts have been made (and we are still trying on daily basis to contact the insurance company) to contact the insurance company to explain (peer to peer) the patients condition and the life-threatening risk of discharging the patient without a LifeVest. Despite leaving a voicemail to explain the situation, there has been no response. * The patient and his family has been updated and explained the condition. * While the patient is in hospital, we will continue monitoring the patient. Case discussed with Dr. Ndiaye Plan discussed with: Patient, Spouse (On the bedside), Other My Orders My Orders Orders - MADHU SUAREZ Procedure Category Date Status Time Metoprolol Xl PHA 10/03/24 In Process Succinate (Toprol Xl) 11:00 Dietary Evaluation Review Comments: Continue current plan of care Expected Outcomes/Goals: F/U in 3-5 days MADHU SUAREZ Oct 03, 2024 18:48
[2024-10-04] VITALS (7 sets, daily range): BP systolic 97–117; BP diastolic 50–72; PULSE 60–70; RESP 16–20; TEMP 97.4–98.1; O2SAT 95–98
[2024-10-04] MEDS: VALSARTAN 80 MG TAB PO SCH (08:31)
[2024-10-04] MEDS ORDERED: VALS1TAB57 PO (15:58)
--- NOTE | 2024-10-04 18:20 | DVHDSRES ---
Discharge Summary Date of Admission Resident Creating Document: TIFFANY BELLO RESDISUSY Sep 24, 2024 at 23:19 Date of Discharge: Sep 28, [address]-elevation myocardial infarction Labs/Diagnostic Data: Laboratory Results Test 10/02/24 10:01 09/27/24 19:26 09/27/24 12:00 09/27/24 04:34 White Blood Count 4.4 10^3/uL (4.4-10.8) Red Blood Count 5.34 10^6/uL (4.5-5.90) Hemoglobin 15.1 g/dL (13.5-17.5) Hematocrit 44.2 % (41.0-53.0) Mean Corpuscular Volume 82.8 fL (80.0-100.0) Mean Corpuscular Hemoglobin 28.3 pg (28.0-32.0) Mean Corpuscular Hemoglobin Concent 34.2 g/dL (32.0-36.0) Red Cell Distribution Width 14.8 % (11.8-14.3) Platelet Count 215 10^3/uL (140-450) Mean Platelet Volume 9.0 fL (6.9-10.8) Neutrophils (%) (Auto) 53.5 % (37.0-80.0) Lymphocytes (%) (Auto) 30.0 % (10.0-50.0) Monocytes (%) (Auto) 13.0 % (0.0-12.0) Eosinophils (%) (Auto) 2.9 % (0.0-7.0) Basophils (%) (Auto) 0.6 % (0.0-2.0) Neutrophils # (Auto) 2.3 10 ^3/uL (1.6-8.6) Lymphocytes # (Auto) 1.3 10 ^3/uL (0.4-5.4) Monocytes # (Auto) 0.6 10 ^3/uL (0-1.3) Eosinophils # (Auto) 0.1 10 ^3/uL (0-0.8) Basophils # (Auto) 0 10 ^3/uL (0-0.2) Nucleated Red Blood Cells 0.1 % Sodium Level 137 mmol/L (136-145) Potassium Level 3.9 mmol/L (3.5-5.1) Chloride Level 105 mmol/L (98-107) Carbon Dioxide Level 27 mmol/L (20-31) Anion Gap 5 (5-15) Blood Urea Nitrogen 16 mg/dL (9-23) Creatinine 1.13 mg/dL (0.700-1.30) Glomerular Filtration Rate Calc 76 mL/min (>90) BUN/Creatinine Ratio 14.2 (10.0-20.0) Serum Glucose 136 mg/dL (74-106) Calcium Level 9.5 mg/dL (8.7-10.4) Magnesium Level 2.0 mg/dL (1.6-2.6) Aspartate Amino Transferase (AST) 62 U/L (13-40) Alanine Aminotransferase (ALT) 146 U/L (7-40) Troponin I High Sensitivity 79 ng/L (</=54) Triglycerides Level 143 mg/dL (< 150) Cholesterol Level 200 mg/dL (< 200) LDL Cholesterol 135 mg/dL (< 100) HDL Cholesterol 40 mg/dL (40-59) Total Bilirubin 0.8 mg/dL (0.2-1.0) Alkaline Phosphatase 65 U/L (46-116) Total Protein 6.1 g/dL (5.7-8.2) Albumin 3.8 g/dL (3.2-4.8) Test 09/26/24 20:54 09/26/24 06:30 09/26/24 04:20 09/24/24 21:12 Influenza Type A Antigen Negative (Negative) Influenza Type B Antigen Negative (Negative) SARS-CoV-2 Antigen (Rapid) Negative (NEGATIVE) Urine Color Yellow (Yellow) Urine Clarity Clear (Clear) Urine pH 5.5 (5.0-9.0) Urine Specific Cameron 1.034 (1.001-1.035) Urine Protein 1+ (Negative) Urine Ketones Trace (Negative) Urine Blood Negative /uL (Negative) Urine Nitrite Negative (Negative) Urine Bilirubin Negative (Negative) Urine Urobilinogen Normal mg/dL (Negative) Urine Leukocyte Esterase Negative /uL (Negative) Urine RBC 1 /hpf (0 - 3) Urine WBC 1 /hpf (0 - 3) Urine Squamous Epithelial Cells Few /hpf (<5) Urine Bacteria Few /hpf (None Seen) Urine Mucus Few (None Seen) Urine Yeast (Budding) Occasional /hpf (None Urine Glucose Trace mg/dL (Normal) Urine Opiates Screen Neg (NEGATIVE) Urine Fentanyl Screen Neg (NEGATIVE) Urine Barbiturates Screen Neg (NEGATIVE) Urine Phencyclidine Screen Neg (NEGATIVE) Urine Amphetamines Screen Neg (NEGATIVE) Urine Benzodiazepines Screen Neg (NEGATIVE) Urine Cocaine Screen Neg (NEGATIVE) Urine Cannabinoids Screen Neg (NEGATIVE) Prothrombin Time 11.2 sec (9.3-11.8) Prothrombin Time INR 1.06 (0.9-1.15) Activated Partial Thromboplast Time 36.5 SEC (24.5-34.5) D-Dimer, Quantitative 7.25 mg/L FEU (0.0-0.49) Lactic Acid Level 1.5 mmol/L (0.4-2.0) Test 09/24/24 18:05 Hemoglobin A1c 5.7 % A1C (<5.7) B-Type Natriuretic Peptide 42.46 pg/mL (0-100) Other Laboratory Tests 10/02/24 10:01 Brief Hx & Hospital Course: The patient is a 54-year-old morbidly obese male with a past medical history of Bbnla-Pxmgcbbza-Utcvu syndrome who presented to [facility] ED for evaluation of cardiac arrest. The patient was sitting at a picnic table when he dropped to the ground. Three cycles of CPR were performed by a family member until paramedics arrived. When paramedics arrived on the scene, he was in ventricular fibrillation, for which he was shocked and received continuous CPR for a few minutes along with one dose of epinephrine. The patient returned to sinus rhythm and was answering questions prior to coming to the ED. At the ED, the patient was complaining of mild chest pain. He denied shortness of breath, palpitations, fever, headache, or any other symptoms. Past Medical History: Fugws-Ippezjvys-Hzduc type EKG (on no medication), morbidly obese Past Surgical History: Noncontributory Family History: Significant for heart disease Social History: Lives with family, denies smoking, drinks occasionally, denies any other drug use Home Medications: Baby aspirin and ibuprofen occasionally for body pain Allergic History: Noncontributory On physical examination in the ED, the patient had mild chest tenderness; otherwise, the examination was within normal limits. Lab studies were significant for trop I raised 688, creatinine at 0.9, potassium at 3.4, creatinine at 1.20, AST at 206, ALT at 302, D-dimer at 7.25, and HbA1c at 5.7. Bilateral lower Doppler and head CT scan were within normal limits. A CT of the chest-abdominopelvic area showed suboptimal opacification of the pulmonary artery for the diagnosis of pulmonary embolus. However, no filling defects were seen in the main pulmonary artery or main right or left pulmonary arteries, and there was no saddle embolus present. During hospital admission, the patient was put on ACS (NSTEMI) protocol (dual antiplatelet, atorvastatin, metoprolol, and lisinopril). Cardiology was consulted and performed left heart catheterization, placing a stent at the proximal LAD. Due to status post cardiac arrest and Onpzr-Vmrrythcp-Kkwda EKG, an storage garage attendant was also consulted and recommended a LifeVest for 3 months. Electrolyte imbalances, including hypokalemia, were supplemented. The patient also developed pruritic rashes on the armpit, groin, and back area, which improved with topical hydrocortisone, stopping Jardiance, and changing lisinopril to losartan. As per the storage garage attendant, considering the patients status post cardiac arrest (due to ventricular fibrillation reverted to normal with defibrillation) and STEMI with a stent placed in the LAD and Orgsy-Lopvwaoes-Spxtn type EKG (which could be a possible cause of cardiac arrest), the patient needs to be followed on an outpatient basis to determine the exact cause of cardiac arrest. At the moment, there is no way to determine if WPW type EKG was the possible cause of cardiac arrest. A LifeVest is recommended for 3 months due to the high risk of future arrhythmias. After a couple of days, the insurance company denied providing the LifeVest. Multiple attempts have been made (and we are trying daily to contact the insurance company) to explain (peer to peer) the patients condition and the life-threatening risk of discharging the patient without a LifeVest. Despite leaving a voicemail to explain the situation, there has been no response. Discharge plan discussed with the patient and the patient is going to pay for LifeVest. Discharge Plan: Follow up with the PCP within 1 week after discharge Follow up with Cardiology on an outpatient basis Use the LifeVest for 3 months, follow up with Cardiology for recommendation of further use of LifeVest Discharge Medication: Aspirin 81 mg daily, clopidogrel 75 mg daily, atorvastatin 80 mg daily, valsartan 80 mg daily, metoprolol 12.5 mg daily Consults/Reason for consult Cardiology: Non ST-elevation RI Operations or Procedures [address] [address] Ph: [phone] DIAGNOSTIC IMAGING Diagnostic Imaging Report : [id number] Signed PATIENT: REJI GIBSONACCT: [id number] UNIT: [id number] : 1970 LOC: [facility] AGE / SEX: 54 / M ADM STATUS: ADM IN SERVICE 47 ORDERING PHYSICIAN: DEBORAH CABRAL DNP PROCEDURE(s): ECIDC - ECHO 2D MODE CARDIAC DOP REASON: Cardiac arrest ORDER NUMBER(s): [id number], ACCESSION NUMBER(s): [id number] APPROVED REPORT EXAM: LIMITED Two-dimensional and M-mode echocardiogram with Doppler and color Doppler. Blood Pressure: 139/87 mmHg INDICATION Cardiac Arrest RISK FACTORS Obesity: Height: 6' 1", Weight: 280 DIMENSIONS LVDd 4.8 (3.8-5.7cm) LA (2D) 3.7 (1.9-4.0cm) Aortic Root 3.6 (2.0- 3.7cm) LVDs 3.5 (2.5-4.0cm) LA (MM) (1.9-4.0cm) Aortic Cusp Exc 2.1 (1.5- 2.0cm) EF (%) 50.0 (55-70%) Rt. Atrium 4.2 (1.9-4.0cm) Asc. Aorta cm IVSd 1.2 (0.7-1.1cm) RV (D) (1.8-2.4cm) PWd 1.2 (0.7-1.1cm) Mitral Valve Mitral Mitral Stenosis E wave 0.80m/s MV Mean GR. mmHg A wave 0.70m/s MV Peak GR. mmHg E/A ratio 1.1 2D MVA cm2 Aortic Valve Aortic Valve Aortic Stenosis V1 0.90m/s AO Mean GR. 4mmHg V2 1.30m/s AO Peak GR. 7mmHg LVOT Diameter 2.5 (1.8-2.4cm) Doppler JAYE 3.40cm2 Other Information Quality : Technically Limited Rhythm : Technically limited study due to body habitus. Conclusion Mildly reduced left ventricular systolic function estimated ejection fraction 45-50%. In a global fashion. There is a grade 1 diastolic dysfunction. Normal right ventricular size and dimension. Normal right ventricular systolic function. Normal biatrial size and dimension. Normal aortic valve structure and function. Normal mitral valve structure and function. Normal tricuspid valve structure and function. The pulmonary valve is grossly normal. No pericardial effusion. SIGNED BY: NADER BURNS MD SIGNED DATE/TIME: 09/25/24 1355 CC: [facility] Operative Report - Cardiology Patient Name: Reji Gibson Unit Number: [id number] Date of : 1970 Patient Status: Admitted Inpatient Attending Doctor: Tiffany Bello Resdient Operative Report - Cardiology Operative Report -Cardiology Report Details Date: 09/26/24 Preop Diagnosis: Status post cardiac arrest with a non ST-elevation myocardial infarction Postop Diagnosis: Coronary angiography revealed critical candy wrapper lesion in the proximal mid LAD for which it was stented using single drug-eluting stent. This was interrogated using intravascular ultrasound which shows well-opposed stents post implantation. Surgeon: Nader Burns MD Anesthesiologist: Conscious sedation using25 mcg of fentanyl as well as a mg IV midazolam. Anesthesia: Local Consent: The patient was informed of the risks and benefits of the procedure. These include but are not limited to complications of anesthesia, postoperative infection, incomplete relief of symptoms, recurrence of symptoms, damage to blood vessels, nerves and tendons, deep venous thrombosis, pulmonary embolism and possible need for repeat surgery in the future. Indications for Surgery: 54-year-old male with PMH for Hijrm-Npuctoega-Qzdse syndrome, presents to the hospital s/p cardiac arrest. Patient and are from [place] and was visiting up at [employer] for patient states he had 1 beer and had gotten up to go use the restroom when patient suddenly became unresponsive and was helped by local firefighters noting patient was agonal breathing and therefore CPR was initiated. Patient underwent 2 rounds of CPR with 1 shock delivered for ventricular fibrillation, possible 1 round of epi per . Rosc was achieved and patient was becoming more responsive and answering questions. Patient was planned to be transported via air to [facility] or [place] though due to weather was unable to fly therefore patient was then transported here to ER. Of note patient has been walking daily with and had just done a hike earlier that day, apple watch results noted heart rate reached roughly 130 beats per minute during exertion with rest of day showing mean heart rate between 60-70 beats per minute on mobile device heart rate monitoring system. Patient denies any remembered palpitations, lightheadedness, chest pains prior to passing out. Upon evaluation patient vital signs were stable, patient is breathing stable on 2 L NC. Patient does complain of chest pain, anterior thoracic area, s/p compressions, increases with deep breathing. Patient also noted have elevated troponin trending 327, 442, 646, 688, 489. LFTs elevated with AST 206 and ALT 302.EKG reviewed and shows sinus rhythm at 78 beats per minute, no significant ST abnormality noted, no delta wave noted. QTC prolongation at 511 ms. Name of Procedure Performed 1. Left heart catheterization with left ventricular end-diastolic pressure measurement. 2. selective right and left coronary angiography utilizing right transradial approach. 3. Coronary angioplasty to the prox LAD using single drug-eluting stent. 4. Intravascular ultrasound interrogation post LAD stenting to ensure well- opposed stent to the wall of the LAD vessel. 5. Conscious sedation using25 mcg of fentanyl as well as a mg IV midazolam. Procedure Details Procedure Details: Procedure note. After informed consent was obtained risks, benefits, complications, alternatives were discussed in details with the patient who agrees to have the procedure done. At the beginning of the procedure the right wrist and the right coronary artery were prepped and draped in regular sterile fashion. Patient received conscious sedation with25 mcg of fentanyl as well as a mg of midazolam. Then, a 2% xylocaine was given to the right wrist area before a six Australian sheath was placed without difficulty using modified Seldinger technique. A cocktail of 2.5 mg of verapamil as well as 100 mcg of nitroglycerin were given intra arterial to prevent vasospasm findings were as follows: 1. Left heart catheterization with left ventricular end-diastolic pressure measurement: With the help of a tiger five Australian catheter as well as a J-tip we were able to cross the aortic valve and measured left ventricular end-diastolic pressure which was elevated at 16 mm of mercury. There was no gradient across the aortic valve on the pullback. 2. Selective right and left coronary angiography utilizing right transradial approach: 1. Right coronary artery comes off the right coronary cusp it is a large dominant artery, it bifurcates distally into large posterior descending artery as well as large posterolateral branch. There was no significant atherosclerotic plaquing noted in the right coronary artery. 2. 2. Left main comes off left coronary cusp, it is a large and has no significant atherosclerotic plaquing. Bifurcates distally into a large left anterior descending artery as well as a large left circumflex system 3. Left anterior descending artery has a candy wrapper lesion of the proximal to mid segment there were two lesion at 90% of the proximal and mid part of the LAD before the takeoff of the 2nd diagonal branch. This is likely the culprit of the patient's cardiac arrest 3. Left circumflex artery comes off the left main it has no significant atherosclerotic disease. However, the 1st obtuse marginal branch has high takeoff and has moderate disease of 60-70%. 3. Angioplasty to proximal mid tandem lesion of the LAD using single drug- eluting stent and intravascular ultrasound interrogation for stent optimization: The tiger five Australian catheter was exchanged for an XB 3.5 guiding catheter, 0.014 mm Zack blue wire was used to engage the left anterior descending artery. Lesion was then pre-dilated using 2.5 x 20 balloon and then was stented using 3.5 x 30 marci [place] drug-eluting stent. Up to four atmospheric pressure. Intravascular ultrasound interrogation was done post implantation indicating under deployed stent, the stent was then post dilated furthermore using four 0 x 20 balloon up to 16 atmospheric pressure a 2nd round of intravascular ultrasound shows well-opposed stent to the wall of the vessel. Obvious complication. Excellent result was obtained. Anticoagulation antiplatelet therapy during the procedure: Patient received Angiomax continuous intravenous infusion, in addition to loading Plavix of 600 mg dose in addition to aspirin at 162 mg dose. Impression and plan: 1. Successful primary PCI to prox mid tandem candy wrapper lesion to the LAD using single drug-eluting stent. 2. Patient would need to be on dual antiplatelet therapy for emt intermediate. 3. Patient would need aggressive medical therapy including high-dose statin to achieve LDL target of less than 50 mg/dL. 4. 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 5. Patient would need an echocardiogram to assess left ventricular systolic function and proceed with goal-directed therapy as indicated. Condition Good [facility] Clinical Frailty Scale [facility] Clinical Frailty Scale: Moderately Frail Stress Test Stress Test Performed: No Dominance Dominance: Right FAYE FAYE Flow: Post- Intervention (FAYE-3), Pre-Intervention (FAYE-2) Lesion Lesion Complexity: High/C Disposition 2 NADER BURNS MD Sep 26, 2024 13:25 Condition at Discharge: Good Final Diagnosis/Problems List ACS s/p LHC with stenting of proximal LAD Status post cardiac arrest (ventricular fibrillation). s/p cardiopulmonary resuscitation NSTEMI Acute on chronic HFmrEF, NYHA class III Yccco-Qhpvvhppl-Fopsl syndrome Hypokalemia Transaminitis, likely due ischemia secondary to to cardiac arrest Prediabetes, hyperglycemia Morbid obesity with metabolic syndrome Allergic reaction, unknown origin Hyperlipidemia Discharge Disposition: Home Discharge Instruct/Medications Diet: Cardiac 2g Na,low cholest Activity: Light activity Activity comment: May resume normal life activity within 1-2 weeks if the patient could tolerate. Follow Up/Referral: Follow up with the PCP within 1 week after discharge. Follow up with the Cardiology and electrophysiology on outpatient basis. Medications: Aspirin 81 mg daily Clopidogrel 75 mg daily Atorvastatin 80 mg daily Valsartan 80mg daily Metoprolol 12.5 mg daily Nitroglycerin sublingual, prn Discharge Statement: "Patient was advised to return to the ER or call 911 if any headaches, dizziness, shortness of breath, chest pain, abdominal pain, bleeding, fevers, or worsening of medical condition. Patient was counseled about treatment plan, medications, possible side effects, patientverbalized understanding. All questions were answered to the best of my ability. This discharge took greater then 30 minutes in planning, reviewing documentation, counseling the patient, and discussing with other team members." ASSESSMENT ASSESSMENT Assessment NSTEMI, status post PCI to the LAD Date of Service: Oct 04, 2024 Billing Provider: ARI DAVALOS MD Common Visit Codes: 39185-FTS/OBS DISCH DAY >30min TIFFANY BELLO RESDIENT Oct 04, 2024 18:20 ARI DAVALOS MD Oct 05, 2024 10:04
== END 2024-10-04 18:33 | disposition home or self-care (01) | DRG 321 ==
LOC: ER 17:19 → EDBD 17:19 → TELE 23:19 → TELE-WESTW 09-25 09:20
PROVIDERS: ADMIT Student in an Organized Health Care Education/Training Program; ATTEND Student in an Organized Health Care Education/Training Program
PROC: 027034Z Dilation of Coronary Artery, One Artery with Drug-eluting Intraluminal Device, Percutaneous Approach (ICD-10-PCS; principal; 2024-09-26)
PROC: B240ZZ3 Ultrasonography of Single Coronary Artery, Intravascular (ICD-10-PCS; 2024-09-26)
PROC: 4A023N7 Measurement of Cardiac Sampling and Pressure, Left Heart, Percutaneous Approach (ICD-10-PCS; 2024-09-26)
PROC: B211YZZ Fluoroscopy of Multiple Coronary Arteries using Other Contrast (ICD-10-PCS; 2024-09-26)
DX: I21.4 Non-ST elevation (NSTEMI) myocardial infarction (principal); I26.99 Other pulmonary embolism without acute cor pulmonale; I46.9 Cardiac arrest, cause unspecified; K72.00 Acute and subacute hepatic failure without coma; I49.01 Ventricular fibrillation; I50.23 Acute on chronic systolic (congestive) heart failure; Z68.41 Body mass index [BMI] 40.0-44.9, adult; I45.6 Pre-excitation syndrome; E87.6 Hypokalemia; E78.5 Hyperlipidemia, unspecified; I25.5 Ischemic cardiomyopathy; R73.9 Hyperglycemia, unspecified; T78.49XA Other allergy, initial encounter; E66.01 Morbid (severe) obesity due to excess calories; I25.10 Atherosclerotic heart disease of native coronary artery without angina pectoris; R74.01 Elevation of levels of liver transaminase levels; E88.810 Metabolic syndrome; Z82.49 Family history of ischemic heart disease and other diseases of the circulatory system; Z82.0 Family history of epilepsy and other diseases of the nervous system; Z79.899 Other long term (current) drug therapy; X58.XXXA Exposure to other specified factors, initial encounter
CPT/HCPCS: 36415; 70450; 71045; 71260; 74177; 80048; 80053; 80061; 80307; 81001; 83036; 83605; 83735; 83880; 84450; 84460; 84484; 85025; 85379; 85610; 85730; 86850; 86900; 86901; 87040; 87426; 87804; 93005; 93306; 93970; 97110; 97116; 97163; 97530; 99152; 99291; G0378; J2250; Q9967